=== PATIENT | female | born 1970 | race Two or more races ===

== ENCOUNTER → 2024-07-14 | Outpatient (CLI) | payer BC, SELFPAY ==
[2024-07-14 08:29] LABS: Misc Send Out* See Sep Rpt
[2024-07-14 08:58] LABS: Collection Type, Urine Clean Catch
[2024-07-14 09:14] LABS: Basophils # (Auto) 0.1 Thou/mm3 (0.0-0.2); Basophils % (Auto) 1 % (0-2.5); Eosinophils # (Auto) 0.1 Thou/mm3 (0.0-0.5); Eosinophils % (Auto) 1 % (0-10); Hematocrit 32.7 % (36.0-46.0); Hemoglobin 10.5 g/dL (12.0-16.0); Immature Granulocytes % (Auto) 1 % (0-0); Immature Granulocytes Auto 0.06 Thou/mm3 (0.00-0.00); Lymphocytes # (Auto) 2.4 Thou/mm3 (1.0-4.8); Lymphocytes % (Auto) 25 % (10-50); Mean Corpuscular HGB Conc 32.1 g/dl (31.0-37.0); Mean Corpuscular Hemoglobin 27.4 pg (25.0-35.0); Mean Corpuscular Volume 85 fL (80-100); Monocytes # (Auto) 0.6 Thou/mm3 (0.0-0.8); Monocytes % (Auto) 6 % (0-12); Neutrophils # (Auto) 6.2 Thou/mm3 (1.8-7.7); Neutrophils % (Auto) 66 % (37-80); Nucleated Red Blood Cell % 0 /100 WBC (0); Platelet Count 243 Thou/mm3 (140-440); RDW Standard Deviation 43.8 fL (36.4-46.3); Red Blood Count 3.83 Miln/mm3 (4.00-5.20); White Blood Count 9.4 Thou/mm3 (3.6-11.0)
[2024-07-14 09:42] LABS: Bacteria,Urine 4+; Bilirubin,Urine Negative (Negative); Blood,Urine Negative (Negative); Clarity,Urine Turbid (Clear/Hazy); Color,Urine Lt-Yellow (Lt Yel-Yel); Glucose, Urine Negative (Negative); Ketones,Urine Negative (Negative); Leukocyte Esterase,Urine Positive (Negative); Nitrite,Urine Negative (Negative); PH,Urine 5.5 (5.0-7.0); Protein,Urine Negative (Neg - Trace); RBC,Urine 3 /hpf (0-3); Specific Gravity,Urine 1.016 (1.001-1.035); Squamous Epithelial Cell,Urine 1 /hpf (0-5); Urobilinogen,Urine Negative mg/dL (0.0-1.0); WBC,Urine 26 /hpf (0-5)
[2024-07-14 09:44] LABS: Sed Rate (ESR) 80 mm/hr (0-30)
[2024-07-14 09:53] LABS: Creatinine MALB Rnd Ur 87 mg/dL (30-125); Microalbumin Creat Ratio 31 mg/gCrea (<30); Microalbumin, Random Urine 27 mg/L (0-300)
[2024-07-14 10:39] LABS: Vitamin B12 463 pg/mL (211-911)
[2024-07-14 10:58] LABS: Alanine Aminotransferase 10 U/L (10-49); Albumin, Serum 4.3 gm/dL (3.5-5.0); Albumin/Globulin Ratio 1.4 (1.2-2.2); Alkaline Phosphatase 99 U/L (46-116); Anion Gap 8 (7-16); Aspartate Amino Transferase 12 U/L (0-34); BUN/Creatinine Ratio 34 Ratio (12-20); Bilirubin,Total 0.4 mg/dL (0.3-1.2); Blood Urea Nitrogen 41 mg/dL (9-23); C-Reactive Protein 0.5 mg/dL (0.0-0.9); Calcium 9.7 mg/dL (8.3-10.6); Calcium (Corrected) 9.7 mg/dL (8.5-10.1); Carbon Dioxide 24.6 mMol/L (20.0-31.0); Cardiac Risk Estimate 2.9 RATIO (3.7-5.6); Chloride 105 mMol/L (98-107); Cholesterol 166 mg/dL (132-200); Creatinine (Component) 1.2 mg/dL (0.6-1.3); Globulin 3.1 gm/dL (2.3-3.5); Glucose 166 mg/dL (74-106); HDL Cholesterol 58 mg/dL (40-60); LDL Cholesterol,Calculated 93 mg/dL (0-130); Osmolality,Calculated 289 (275-295); Potassium 4.8 mMol/L (3.4-5.1); Sodium 138 mMol/L (136-145); Thyroid Stimulating Hormone 0.66 uIU/mL (0.55-4.78); Total Protein 7.4 gm/dL (5.7-8.2); Triglycerides 75 mg/dL (30-150); Uric Acid 6.6 mg/dL (3.1-7.8); eGFR 53 See Note
[2024-07-14 12:07] LABS: Glucose Estimated Average 169 mg/dL (80-131); Hemoglobin A1C 7.5 % Hgb (4.8-6.0)
[2024-07-18 13:40] LABS: ANA Pattern NUCLEAR, HOMOGENEOUS; ANA Screen, IFA POSITIVE (NEGATIVE); ANA Titer 1:40 titer; CCP Antibody (IgG)* <16 Units; DNA (ds) Antibody* 2 IU/mL; T3,Total* 97 ng/dL (76-181); Thyroid Peroxidase Antibodies* <1 IU/mL (<9)
== END | disposition home or self-care (01) ==
PROVIDERS: PCP Internal Medicine; Referring Provider Internal Medicine; Visit Provider Nurse Practitioner Family
DX: E11.65 Type 2 diabetes mellitus with hyperglycemia (principal); R53.83 Other fatigue; E55.9 Vitamin D deficiency, unspecified; I10 Essential (primary) hypertension; E78.5 Hyperlipidemia, unspecified; N17.9 Acute kidney failure, unspecified; D51.9 Vitamin B12 deficiency anemia, unspecified; M12.30 Palindromic rheumatism, unspecified site
CPT/HCPCS: 36415; 80053; 80061; 81001; 82043; 82306; 82570; 82607; 83036; 83519; 84439; 84443; 84480; 84550; 85025; 85652; 86038; 86039; 86140; 86200; 86225; 86376

== ENCOUNTER 2024-09-26 20:28 | Emergency (ER) | payer BC, SELFPAY ==
--- NOTE | 2024-09-26 20:50 | EKG_ITS ---
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
[2024-09-26 21:16] VITALS: BP 148/84; PULSE 75; RESP 18; TEMP 36.9; O2SAT 99; BMI 27.8
--- NOTE | 2024-09-26 21:24 | XR_ITS ---
Examination: PA chest single view Technique: Upright PA chest single view Exam date and time: September 18, 2024 at 10 0 2:00 PM Comparison 04/23/2024 Indications: Chest pain shortness of breath today. Findings: Normal heart size Transvenous dual-chamber bipolar cardiac leads satisfactory position as well as epicardial 8 No pneumonia or pulmonary edema The osseous structures are intact Impression: No active disease
--- NOTE | 2024-09-26 21:24 | PD.EDRME ---
Rapid Medical Screening Exam E Arrival date/time: 09/26/24 20:28 54F with history of CHF (w/ pacemaker), DM, and HTN presents to ED with 2 days of CP and SOB. Remote history of anxiety. 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 Chief Complaint: Chest Pain Vital signs: Vital Signs Temperature 98.4 F 09/26/24 21:16 Pulse Rate 75 09/26/24 21:16 Respiratory Rate 18 09/26/24 21:16 Blood Pressure 148/84 H 09/26/24 21:16 Pulse Oximetry (%) 99 09/26/24 21:16 Oxygen Delivery Method Room Air 09/26/24 21:16
[2024-09-26 21:50] LABS: Basophils # (Auto) 0.1 Thou/mm3 (0.0-0.2); Basophils % (Auto) 1 % (0-2.5); Eosinophils # (Auto) 0.1 Thou/mm3 (0.0-0.5); Eosinophils % (Auto) 1 % (0-10); Hematocrit 30.7 % (36.0-46.0); Hemoglobin 10.1 g/dL (12.0-16.0); Immature Granulocytes % (Auto) 0 % (0-0); Immature Granulocytes Auto 0.03 Thou/mm3 (0.00-0.00); Lymphocytes # (Auto) 3.7 Thou/mm3 (1.0-4.8); Lymphocytes % (Auto) 40 % (10-50); Mean Corpuscular HGB Conc 32.9 g/dl (31.0-37.0); Mean Corpuscular Volume 85 fL (80-100); Monocytes # (Auto) 0.6 Thou/mm3 (0.0-0.8); Monocytes % (Auto) 7 % (0-12); Neutrophils # (Auto) 4.8 Thou/mm3 (1.8-7.7); Neutrophils % (Auto) 52 % (37-80); Nucleated Red Blood Cell % 0 /100 WBC (0); Platelet Count 234 Thou/mm3 (140-440); RDW Standard Deviation 42.9 fL (36.4-46.3); Red Blood Count 3.61 Miln/mm3 (4.00-5.20); White Blood Count 9.2 Thou/mm3 (3.6-11.0)
[2024-09-26 21:59] LABS: B-Type Natriuretic Peptide < 20 pg/mL (0-100)
[2024-09-26 22:12] LABS: Alanine Aminotransferase < 7 U/L (10-49); Albumin, Serum 4.1 gm/dL (3.5-5.0); Albumin/Globulin Ratio 1.3 (1.2-2.2); Alkaline Phosphatase 86 U/L (46-116); Anion Gap 6 (7-16); Aspartate Amino Transferase 11 U/L (0-34); BUN/Creatinine Ratio 36 Ratio (12-20); Bilirubin,Total 0.3 mg/dL (0.3-1.2); Blood Urea Nitrogen 32 mg/dL (9-23); Calcium 9.7 mg/dL (8.3-10.6); Calcium (Corrected) 9.7 mg/dL (8.5-10.1); Carbon Dioxide 28.1 mMol/L (20.0-31.0); Chloride 110 mMol/L (98-107); Creatinine (Component) 0.9 mg/dL (0.6-1.3); Globulin 3.2 gm/dL (2.3-3.5); Glucose 131 mg/dL (74-106); Osmolality,Calculated 295 (275-295); Potassium 4.6 mMol/L (3.4-5.1); Sodium 144 mMol/L (136-145); Total Protein 7.3 gm/dL (5.7-8.2); Troponin I < 0.002 ng/mL (0.0-0.045); eGFR > 60 See Note
[2024-09-26 22:54] VITALS: BP 142/78; PULSE 76; RESP 18; TEMP 36.9; O2SAT 97
[2024-09-27 00:44] LABS: Troponin I < 0.002 ng/mL (0.0-0.045)
--- NOTE | 2024-09-27 01:44 | PD.EDCHEST ---
ED Chest Pain RME/HPI General Chief Complaint: Chest Pain Stated Complaint: CHEST PAIN Time Seen by Provider: 09/26/24 22:36 Arrival date/time: 09/26/24 20:28 54F with history of CHF (w/ pacemaker), DM, and HTN presents to ED with 2 days of CP and SOB. Remote history of anxiety. 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 Limitations: no limitations RME / HPI RME / HPI narrative: 09/26/24 20:28 54F with history of CHF (w/ pacemaker), DM, and HTN presents to ED with 2 days of CP and SOB. Remote history of anxiety. 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 Related Data Home Medications ?Medication ?Instructions ?Recorded ?Confirmed alprazolam 0.25 mg tablet 0.25 mg PO TID PRN Anxiety 09/27/22 08/15/23 Held on 08/15/23. Instructions: Resume on 08/16/23. atorvastatin 20 mg tablet 20 mg PO HS 09/27/22 08/15/23 carvedilol 25 mg tablet 25 mg PO BID 09/27/22 08/15/23 cyclobenzaprine 5 mg tablet 5 mg PO TID 09/27/22 08/15/23 Held on 08/15/23. Instructions: Resume on 08/16/23. glipizide 5 mg-metformin 500 mg 1 tab PO BID 09/27/22 08/15/23 tablet insulin glargine 100 unit/mL (3 See Protocol subcut ACHS 09/27/22 08/15/23 mL) subcutaneous pen (Lantus Solostar U-100 Insulin) sacubitril 49 mg-valsartan 51 mg 1 tab PO BID 09/27/22 08/15/23 tablet (Entresto) tirzepatide 5 mg/0.5 mL 5 mg subcut QWEEK 09/27/22 08/15/23 subcutaneous pen injector (Mounjaro) aspirin 81 mg tablet 81 mg PO QDAY 12/25/22 08/15/23 calcium 600 mg capsule 600 mg PO QDAY 08/15/23 08/15/23 pantoprazole 20 mg tablet,delayed 20 mg PO QDAY 08/15/23 08/15/23 release (Protonix) vortioxetine 10 mg tablet 10 mg PO QDAY 08/15/23 08/15/23 (Trintellix) zinc 50 mg capsule 50 mg PO QDAY 08/15/23 08/15/23 Previous Rx's ?Medication ?Instructions ?Recorded cephalexin 500 mg capsule 500 mg PO TID #15 caps 09/24/23 Allergies Allergy/AdvReac Type Severity Reaction Status Date / Time hydrocodone Allergy Severe VOMITING, Verified 09/26/24 20:32 RASH ondansetron Allergy Severe Seizure Verified 09/26/24 20:32 Review of Systems Review of Systems Systems Reviewed: All systems reviewed, normal except as documented Constitutional Constitutional: Reports system reviewed and no additional complaints, except as documented, Denies fever(s) and Denies headache(s) ENT Ears, Nose, Mouth, and Throat: Denies disequilibrium and Denies headache(s) Cardiovascular Cardiovascular: Reports system reviewed and no additional complaints, except as documented, Reports as per HPI, Reports chest pain and Reports dyspnea Respiratory Respiratory: Reports system reviewed and no additional complaints, except as documented, Denies cough and Reports dyspnea Gastrointestinal Gastrointestinal: Reports system reviewed and no additional complaints, except as documented, Denies abdominal pain, Denies nausea and Denies vomiting Neurologic Neurologic: Reports system reviewed and no additional complaints, except as documented, Denies confusion, Denies disequilibrium and Denies headache(s) Psychiatric Psychiatric: Denies confusion Past Medical History Past Medical History NEUROLOGIC: Positive Brain Tumor and Migraine; Negative Seizures or Mclaughlin's Palsy CARDIAC: Positive Cardiac Disorders, Hypercholesterolemia, Deep Vein Thrombosis and Hypertension; Negative Myocardial Infarction, Congestive Heart Failure or Edema RESPIRATORY: Positive Asthma, Bronchitis and Sleep Apnea; Negative Chronic Obstructive Pulmonary Disease (COPD), Emphysema or Pneumonia GASTROINTESTINAL: Positive Gastrointestinal Disorders and Gastroesophageal Reflux Disease; Negative Hepatitis, Cirrhosis, Ulcer, Crohn's Disease or Hiatal Hernia GENITOURINARY: Positive Kidney Stones; Negative Genitourinary Disorders or Renal Disease REPRODUCTIVE: Positive Previous Pregnancies; Negative Endometriosis, Pelvic Inflammatory Disease or Uterine Prolapse MUSCULOSKELETAL: Positive Musculoskeletal Disorders, Arthritis and Carpal Tunnel Syndrome; Negative Rheumatoid Arthritis, Fractures or Osteomyelitis ENDOCRINE: Positive Endocrine Disorders and Diabetes Mellitus Type 2; Negative Diabetes Mellitus Type 1, Hypoglycemia, Hyperthyroidism or Hypothyroidism HEMATOLOGIC: Positive Anemia; Negative Blood Disorders or Sickle Cell Disease PSYCHO/SOCIAL: Negative Depression or Anxiety OTHER HISTORY: Positive Anesthesia Reactions and Chicken Pox; Negative Autoimmune Disease, Blood Transfusions, Blood Transfusion Reaction, Organ Transplant, Chemotherapy, Radiation Therapy, MRSA, VRSA, Vancomycin-Resistant Enterococci, Measles, Mumps or Cancer Family History FAMILY HISTORY: Positive Family Cardiac Disorders; Negative Family Psychiatric Problems, Family Respiratory Disorders, Family Gastrointestinal Problems, Family Cancer, Family Surgery or Family Anesthesia Reaction Surgical History SURGICAL: Positive Pacemaker, Angiogram, Auto Implanted Cardiovert Defib, Abdominal Surgery, Neurologic Surgery, Hysterectomy and Tubal Ligation; Negative Endocrine Surgery, Thyroidectomy or Organ Transplant Social History SMOKING STATUS: Never smoker SUBSTANCE USE: does not use ED Exam General Limitations: Present no limitations General appearance: Present alert and in no apparent distress Head Head exam: Present atraumatic Eye Eye exam: Present normal appearance, PERRL and EOMI ENT ENT exam: Present normal exam, normal oropharynx and mucous membranes moist Neck Neck exam: Present normal inspection, full ROM and trachea midline Chest Chest inspection: Present normal inspection and symmetric chest wall rise Respiratory Respiratory exam: Present normal lung sounds bilaterally Cardiovascular Cardiovascular exam: Present regular rate, normal rhythm and normal heart sounds Abdominal Exam Abdominal exam: Present soft and normal bowel sounds Extremities Exam Extremities exam: Present normal inspection and full ROM Back Exam Back exam: Present normal inspection and full ROM Neurological Exam Neurological exam: Present alert, oriented X3 and CN II-XII intact Psychiatric Psychiatric exam: Present normal affect and normal mood Skin Skin exam: Present warm, dry, intact and normal color Course Quality Measures none Orders Category Date Time Status EKG (ED ONLY) *Do not use* NOW Care 09/26/24 20:50 Completed EKG (ED Only) Stat Exams 09/26/24 20:50 Draft XR chest 1V portable Stat Exams 09/26/24 21:24 Completed B-Type Natriuretic Peptide Stat Lab 09/26/24 21:35 Completed CBC Stat Lab 09/26/24 21:35 Completed Comprehensive Metabolic Panel Stat Lab 09/26/24 21:35 Completed Troponin I Stat Lab 09/26/24 21:35 Completed Troponin I Stat Lab 09/26/24 23:57 Completed Vital Signs Vital signs: Vital Signs Temperature 98.4 F 09/26/24 21:16 Pulse Rate 75 09/26/24 21:16 Respiratory Rate 18 09/26/24 21:16 Blood Pressure 148/84 H 09/26/24 21:16 Pulse Oximetry (%) 99 09/26/24 21:16 Oxygen Delivery Method Room Air 09/26/24 21:16 O2 at 99% on RA and WNLs Chest Pain MDM Narrative MDM Narrative:: 54F with history of CHF (w/ pacemaker), DM, and HTN presents to ED with 2 days of CP and SOB. Remote history of anxiety. 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 Physical exam reveals clear ENT and lungs. Normal WOB. No leg swelling. Patient is afebrile, calm, and alert. EKG is paced. No leukocytosis. CMP remarkable. BMP normal. CXR normal. Trop (2x) normal. Medical File Clerk given. Patient data External records reviewed:: [facility] previous records Clinical information provided by:: patient Social determinants that could affect healthcare access:: none Patient has the following chronic illnesses:: CHF (w/ pacemaker), DM, and HTN How is presenting disease/condition affected by chronic disease/condition?: exacerbated by Evaluation data The following diagnostics were reviewed and interpreted by me:: lab results, radiology exam(s) and EKG tracing(s) Lab and/or radiology exams considered but not ordered:: ordered Interpretation Summary: above Medications / Prescriptions Medications or Prescriptions considered but not ordered:: not ordered Medication administrations:: n/a Consultations Consultation(s) initiated? (list below): No Diagnosis Chest Pain Differential Diagnosis: fracture of rib, pneumothorax, stable angina, unstable angina pectoris, atypical chest pain, st elevation myocardial infarction, costochondritis, chest pain, biliary colic and other (PE, CAP) Most likely diagnosis given after review of the tests above:: atypical chest pain Admission Indicated Admission indicated?: not indicated Admission Request Was there a request for admission?: No Disposition Plan Disposition Plan: Discharge Discharge Attestation Discharge Attestation: The patient and all family members were given an opportunity to ask questions and understood the discharge instructions. Discharge instructions specifically effects, indications for sooner follow up or return to the emergency department, and the expected course of current diagnosis. Patient condition: Stable Discharge Plan Plan Patient Disposition: HOME (Self Care) Disposition Comment: Stable Prescriptions/Referrals Prescriptions/Med Rec: No Action insulin glargine [Lantus Solostar U-100 Insulin] 100 unit/mL (3 mL) insulin pen See Protocol SUBCUT ACHS Protocol: Insulin Corrective High-Dose Regimen Condition: Fingerstick Blood Glucose Dose/Route: Insulin Units Condition: 141-180 mg/dl Dose/Route: 6 units/SQ Condition: 181-220 mg/dl Dose/Route: 8 units/SQ Condition: 221-260 mg/dl Dose/Route: 10 units/SQ Condition: 261-300 mg/dl Dose/Route: 12 units/SQ Condition: 301-350 mg/dl Dose/Route: 14 units/SQ Condition: 351-400 mg/dl Dose/Route: 16 units/SQ Condition: greater than 400 mg/dl Dose/Route: 18 units/SQ atorvastatin 20 mg tablet 20 mg PO HS Patient Comments: TAKE 1 TABLET BY MOUTH EVERYDAY AT BEDTIME carvedilol 25 mg Tablet 25 mg PO BID Rx Instructions: must administer with a meal/food alprazolam 0.25 mg Tablet 0.25 mg PO TID PRN (Reason: Anxiety) glipizide-metformin 5-500 mg Tablet 1 tab PO BID cyclobenzaprine 5 mg Tablet 5 mg PO TID Entresto 49-51 mg Tablet 1 tab PO BID Mounjaro 5 mg/0.5 mL Pen Injector 5 mg SUBCUT QWEEK Rx Instructions: Fridays aspirin 81 mg Tablet 81 mg PO QDAY calcium 600 mg Capsule 600 mg PO QDAY pantoprazole [Protonix] 20 mg Tablet,Delayed Release (Dr/Ec) 20 mg PO QDAY zinc 50 mg Capsule 50 mg PO QDAY Trintellix 10 mg tablet 10 mg PO QDAY Patient Comments: TAKE 1 TABLET (10 MG) BY ORAL ROUTE ONCE DAILY AT THE SAME TIME EACH DAY cephalexin 500 mg capsule 500 mg PO TID Qty: 15 0RF Referrals: Jackie Huff MD [Primary Care Provider] - In 1 week Problem List Clinical Impression: Atypical chest pain Patient/Caregiver Discharge Instructions Education Materials: ED Chest Pain, Uncertain Cause Additional Instructions: Please follow-up with PCP/linseed oil press tender within 24-48 hours and return immediately if symptoms worsen. Print Language: Sami Stand Alone Forms: Patient Portal Info Letter PA/COMPUTER GRAPHIC ARTIST Supervising Physician PA/COMPUTER GRAPHIC ARTIST Supervising Physician: Dr. Alvarado
[2024-09-27 01:51] VITALS: BP 128/82; PULSE 75; RESP 16; TEMP 36.8; O2SAT 98
== END 2024-09-27 01:53 | disposition home or self-care (01) ==
PROVIDERS: Physician Assistant; Emergency Provider Emergency Medicine; PCP Internal Medicine
DX: R07.89 Other chest pain (principal); I11.0 Hypertensive heart disease with heart failure; I50.9 Heart failure, unspecified; E11.9 Type 2 diabetes mellitus without complications; Z95.0 Presence of cardiac pacemaker; Z88.5 Allergy status to narcotic agent
CPT/HCPCS: 36415; 71045; 80053; 83880; 84484; 85025; 93005; 99283

== ENCOUNTER 2024-10-14 09:36 | Day surgery (SDC) | payer BC, SELFPAY ==
--- NOTE | 2024-10-13 07:00 | EKG_ITS ---
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
[2024-10-13 12:35] LABS: Basophils # (Auto) 0.1 Thou/mm3 (0.0-0.2); Basophils % (Auto) 0 % (0-2.5); Eosinophils % (Auto) 0 % (0-10); Hematocrit 30.7 % (36.0-46.0); Hemoglobin 10.2 g/dL (12.0-16.0); Immature Granulocytes % (Auto) 2 % (0-0); Immature Granulocytes Auto 0.19 Thou/mm3 (0.00-0.00); Lymphocytes % (Auto) 17 % (10-50); Mean Corpuscular HGB Conc 33.2 g/dl (31.0-37.0); Mean Corpuscular Hemoglobin 27.8 pg (25.0-35.0); Mean Corpuscular Volume 84 fL (80-100); Monocytes % (Auto) 8 % (0-12); Neutrophils # (Auto) 8.6 Thou/mm3 (1.8-7.7); Neutrophils % (Auto) 73 % (37-80); Nucleated Red Blood Cell % 0 /100 WBC (0); Platelet Count 397 Thou/mm3 (140-440); RDW Standard Deviation 38.7 fL (36.4-46.3); Red Blood Count 3.67 Miln/mm3 (4.00-5.20); White Blood Count 11.8 Thou/mm3 (3.6-11.0)
[2024-10-13 12:43] LABS: INR 1.1 (0.9-1.3); Partial Thromboplastin Time 30.5 Seconds (22.0-36.0); Prothrombin Time 11.5 Seconds (9.0-12.2)
[2024-10-13 12:48] LABS: Anion Gap 9 (7-16); BUN/Creatinine Ratio 24 Ratio (12-20); Blood Urea Nitrogen 31 mg/dL (9-23); Calcium 10.1 mg/dL (8.3-10.6); Carbon Dioxide 26.5 mMol/L (20.0-31.0); Chloride 98 mMol/L (98-107); Creatinine (Component) 1.3 mg/dL (0.6-1.3); Glucose 179 mg/dL (74-106); Osmolality,Calculated 276 (275-295); Potassium 4.8 mMol/L (3.4-5.1); Sodium 133 mMol/L (136-145); eGFR 48 See Note
[2024-10-14] VITALS (13 sets, daily range): BP systolic 144–177; BP diastolic 61–96; PULSE 64–94; RESP 12–19; TEMP 36.7–36.8; O2SAT 97–100; BMI 28.6
[2024-10-14] MEDS: carVEDILOL 12.5 MG TABLET 25 MG PO (14:14)
[2024-10-14] MEDS: ACETAMINOPHEN 325 MG TABLET 650 MG PO (14:21)
--- NOTE | 2024-10-14 16:33 | PC.NURSE ---
1221: Pt received for recovery. Report from Triston VELÁSQUEZ. Pt groggy, but responsive. Resp even, unlabored. VS stable. TR band intact with no swelling, hematoma. Femoral dressing dry, clean, intact with no swelling, hematoma. 1250: Pt more awake, alert. Sitting up tolerating po fluids with no difficulty swallowing and no n/v. 1320: TR band air removal started. 1345: Pt needing to void. [place] suction catheter placed. 1414: BP elevated. Dr. Marquez notified. Received order for Carvidilol which was given at this time. 1420: TR band air removal complete. Tegaderm and coban applied to right wrist. 1421: Pt having c/o pain to right groin. Rates pain level 6/10. Tylenol given, 1451: Pt stated pain level down and she is much more comfortable. 1525: Pt dressed and in transport chair. Awaiting transportation. 1600: Transportation available. Pt and daughter stated understanding of discharge instructions. Pt discharged from Institutional Commodity Analyst in stable condition.
--- NOTE | 2024-10-15 10:01 | ESOP_ITS ---
RE: ROBYN FISCHER : 1970 DATE OF OPERATION: 10/14/2024 PROCEDURE PERFORMED: 1. Diagnostic right and left heart cardiac catheterization, selective coronary angiogram, left ventricular angiogram, CPT 29077. 2. Ultrasound-guided access, right radial artery. 3. Conscious sedation, 30-minute duration. 4. TR band application. DIAGNOSES: Cardiomyopathy, congestive heart failure, angina pectoris. HISTORY AND INDICATIONS: The patient is a 54-year-old female with a history of nonischemic cardiomyopathy, congestive heart failure, DEMOLITION EXPERT-D implantation, has been having recurrent and severe substernal chest tightness, chest pain, shortness of breath with minimal exertion, shortness of breath at rest at times. Because of these findings and known CAD, a nuclear scan was performed that was also abnormal. Hence, coronary angiogram was recommended to assess the patient is a candidate for intervention, revascularization. DESCRIPTION OF PROCEDURE: The patient was brought to cardiac catheterization laboratory. She was given 2 mg of Versed and 100 mcg of fentanyl for conscious sedation. Right femoral vein was cannulated with micropuncture technique. A 7-[place] sheath was introduced. Right radial artery was cannulated by ultrasound guidance technique and a 6-[place] Glidesheath was introduced. Diagnostic right heart catheterization was performed with [place] catheter. Right heart pressures were measured. Diagnostic left heart catheterization performed by TIG-4 diagnostic catheter. Selective right and left coronary angiogram was performed by Chandrakant catheters. Multiple views were obtained. The patient tolerated the procedure well. There were no complications. Cardiac catheterization showed following findings: HEMODYNAMICS: Right atrial pressure was found to be 0 to 2 mmHg. Right ventricle pressure is found to be 22/0. PA pressure is 17/5 mmHg. Pulmonary artery wedge pressure is 2 mmHg. Left ventricular pressure 132/5, EDP 8, aortic pressure 140/68. No gradient across the aortic valve. Left ventricular angiogram showed evidence of normal left ventricular wall motion, ejection fraction of 70%. FINDINGS: Coronary angiogram showed following findings. Right coronary artery is large and dominant giving a PDA. Posterolateral branches appear normal. Left coronary system. Left main coronary artery is normal. Left anterior descending artery is normal. Circumflex artery is normal. SUMMARY OF FINDINGS AND SUGGESTIONS: 1. Normal nonobstructive epicardial coronary arteries. 2. Normal left ventricular function, ejection fraction 70%. 3. Normal PA pressure and right heart pressure. RECOMMENDATIONS: The patient is reassured about the absence of significant obstructive coronary artery disease. No evidence of congestive heart failure. Her symptoms are probably noncardiac in nature. Prognosis is excellent. Continue medical management. DT: 08:42:40 TT: 09:59:00 Ref: [id number] - TID: [id number]
== END 2024-10-14 15:50 | disposition home or self-care (01) ==
PROVIDERS: PCP Internal Medicine; Referring Provider Internal Medicine Cardiovascular Disease; Visit Provider Internal Medicine Cardiovascular Disease
PROC: (CPT 93460; principal; 2024-10-14 11:30)
DX: I25.118 Atherosclerotic heart disease of native coronary artery with other forms of angina pectoris (principal); I42.8 Other cardiomyopathies; E11.9 Type 2 diabetes mellitus without complications; I11.0 Hypertensive heart disease with heart failure; I50.22 Chronic systolic (congestive) heart failure; Z95.810 Presence of automatic (implantable) cardiac defibrillator; Z01.810 Encounter for preprocedural cardiovascular examination
CPT/HCPCS: 93460; 36415; 80048; 85025; 85610; 85730; 93005; 99152; 99153; A4649; C1769; C1887; C1894; J0171; J0461; J1643; J2250; J2310; J2371; J3010; J3490; Q9967; A9270; J2305

== ENCOUNTER 2024-11-09 23:52 | Emergency (ER) | payer BC, SELFPAY ==
[2024-11-09 23:53] VITALS: BMI 28.3
[2024-11-10 00:08] VITALS: BP 98/63; PULSE 95; RESP 20; TEMP 36.8; O2SAT 98
--- NOTE | 2024-11-10 00:11 | XR_ITS ---
Examination: Ultrasound soft tissue right groin perineum Technique: Grayscale sonographic images soft tissue right groin pneumoperitoneum Exam date and time: November 10, 2024 0019 hrs. Indications: Painful lump with discharge and redness in the right leg noticed beginning 4 days ago. Findings: Soft tissue echogenic mass at the area concern with increased vascularity, 3.2 x 1.4 x 2.6 cm Impression: Soft tissue abscess at the area of concern 3.2 x 1.4 x 2.6 cm
--- NOTE | 2024-11-10 00:12 | PD.EDRME ---
Rapid Medical Screening Exam RME Arrival date/time: 11/09/24 23:52 54 year old female present to ED for c/o of inner thigh abscess.redness I have greeted and performed a focused initial assessment of this patient. A comprehensive ED assessment and evaluation of the patient, analysis of all test results, and completion of the medical decision making process will be conducted by additional ED providers. Chief Complaint: Skin/Abscess/Foreign Body Time Seen by Provider: 11/09/24 23:56 Vital signs: Vital Signs Temperature 98.3 F 11/10/24 00:08 Pulse Rate 95 11/10/24 00:08 Respiratory Rate 20 11/10/24 00:08 Blood Pressure 98/63 11/10/24 00:08 Pulse Oximetry (%) 98 11/10/24 00:08 Oxygen Delivery Method Room Air 11/10/24 00:08
[2024-11-10 00:50] LABS: Lactate (Lactic Acid) 1.5 mMol/L (0.4-2.0)
[2024-11-10 00:51] LABS: Basophils % (Auto) 0 % (0-2.5); Eosinophils # (Auto) 0.2 Thou/mm3 (0.0-0.5); Eosinophils % (Auto) 1 % (0-10); Hematocrit 31.1 % (36.0-46.0); Hemoglobin 10.1 g/dL (12.0-16.0); Immature Granulocytes % (Auto) 1 % (0-0); Immature Granulocytes Auto 0.12 Thou/mm3 (0.00-0.00); Lymphocytes # (Auto) 3.9 Thou/mm3 (1.0-4.8); Lymphocytes % (Auto) 27 % (10-50); Mean Corpuscular HGB Conc 32.5 g/dl (31.0-37.0); Mean Corpuscular Hemoglobin 28.6 pg (25.0-35.0); Mean Corpuscular Volume 88 fL (80-100); Monocytes # (Auto) 1.1 Thou/mm3 (0.0-0.8); Monocytes % (Auto) 7 % (0-12); Neutrophils # (Auto) 9.5 Thou/mm3 (1.8-7.7); Neutrophils % (Auto) 64 % (37-80); Nucleated Red Blood Cell % 0 /100 WBC (0); Platelet Count 258 Thou/mm3 (140-440); RDW Standard Deviation 41.4 fL (36.4-46.3); Red Blood Count 3.53 Miln/mm3 (4.00-5.20); White Blood Count 14.8 Thou/mm3 (3.6-11.0)
[2024-11-10 01:44] LABS: Albumin, Serum 4.2 gm/dL (3.5-5.0); Albumin/Globulin Ratio 1.2 (1.2-2.2); Alkaline Phosphatase 91 U/L (46-116); Anion Gap 10 (7-16); Aspartate Amino Transferase 11 U/L (0-34); BUN/Creatinine Ratio 24 Ratio (12-20); Bilirubin,Total 0.4 mg/dL (0.3-1.2); Blood Urea Nitrogen 29 mg/dL (9-23); Calcium 10.4 mg/dL (8.3-10.6); Calcium (Corrected) 10.4 mg/dL (8.5-10.1); Carbon Dioxide 27.4 mMol/L (20.0-31.0); Chloride 103 mMol/L (98-107); Creatinine (Component) 1.2 mg/dL (0.6-1.3); Estimated Creatinine Clearance 46.2 mL/min (>60); Globulin 3.6 gm/dL (2.3-3.5); Glucose 180 mg/dL (74-106); Osmolality,Calculated 290 (275-295); Potassium 4.3 mMol/L (3.4-5.1); Sodium 140 mMol/L (136-145); Total Protein 7.8 gm/dL (5.7-8.2); eGFR 53 See Note
[2024-11-10 01:50] LABS: Alanine Aminotransferase < 7 U/L (10-49); Procalcitonin 0.12 ng/ml (0.0-0.49)
--- NOTE | 2024-11-10 02:09 | PRELIM_ITS ---
Soft tissue ultrasound of the right groin/external genitalia with Doppler. November 10, 2024 at 0019 hours Clinical history: Abscess inner thigh. Comparison: None available at the time of this report. Findings: Abscess at the level of the right vaginal labia measuring 3.2 x 1.4 x 2.4 cm demonstrating increased peripheral vascularity. Impression: Right vaginal labial abscess. Discussion Details: Results verbally communicated to Jesse Anderson RN at 05:06 AM ET 10/11/2024. A call back number was provided to facilitate a [id number] communication. Report Electronically Signed By: Vahid Dobbs 11/10/2024 2:09:33 AM [EST]
--- NOTE | 2024-11-10 04:13 | PD.EDSKIN ---
ED Skin Abcess FB-RME/HPI General Chief complaint: Skin/Abscess/Foreign Body Stated complaint: abscess to R groing area Time Seen by Provider: 11/09/24 23:56 Arrival date/time: 11/09/24 23:52 Limitations: no limitations RME / HPI RME / HPI narrative: 11/09/24 23:52 54 year old female present to ED for c/o of inner thigh abscess.redness I have greeted and performed a focused initial assessment of this patient. A comprehensive ED assessment and evaluation of the patient, analysis of all test results, and completion of the medical decision making process will be conducted by additional ED providers. DR. FINNEY MAIN ED EVALUATION: 54 year old female presents to the Emergency Department with complaint of right thigh abscess. States she had a right thigh pimple for 5 days and that is it getting bigger. She did not seek medical attention until now because she had a , but she has been applying hot compresses. However, patient states the abscess is growing with increased pain. No fevers or chills. No other symptoms reported at this time. PMHx: Hypertension, diabetes type 2, nonischemic cardiomyopathy, congestive heart failure, and PERSONNEL ASSISTANT-D implantation. Social Hx: No tobacco, alcohol, or substance use. Dr. Marquez is her wrap turner. Related Data Home Medications ?Medication ?Instructions ?Recorded ?Confirmed alprazolam 0.25 mg tablet 0.25 mg PO TID PRN Anxiety 09/27/22 10/14/24 atorvastatin 20 mg tablet 20 mg PO HS 09/27/22 10/14/24 carvedilol 25 mg tablet 25 mg PO BID 09/27/22 10/14/24 cyclobenzaprine 5 mg tablet 5 mg PO TID 09/27/22 10/14/24 calcium 600 mg capsule 600 mg PO QDAY 08/15/23 10/14/24 zinc 50 mg capsule 50 mg PO QDAY 08/15/23 10/14/24 cetirizine 5 mg-pseudoephedrine ER 1 tab PO Q12H 10/14/24 10/14/24 120 mg tablet,extended release,12hr (All Day Allergy-D) dextromethorphan-guaifenesin 30 1 tab PO Q12H 10/14/24 10/14/24 mg-600 mg tablet extended [id number] hr duloxetine 60 mg capsule,delayed mg PO 10/14/24 release gabapentin 300 mg capsule mg 10/14/24 metformin 500 mg tablet,extended mg PO 10/14/24 release 24 hr Held on 10/14/24. Instructions: Resume on 10/16/24. Hold x48 hrs then may resume. sacubitril 24 mg-valsartan 26 mg 1 tab PO BID 10/14/24 10/14/24 tablet (Entresto) tirzepatide 7.5 mg/0.5 mL 7.5 mg subcut QWEEK 10/14/24 10/14/24 subcutaneous pen injector (Brianunashleyro) Previous Rx's ?Medication ?Instructions ?Recorded clindamycin HCl 300 mg capsule 300 mg PO Q6H #40 caps 11/10/24 Allergies Allergy/AdvReac Type Severity Reaction Status Date / Time hydrocodone Allergy Severe VOMITING, Verified 11/10/24 04:48 RASH ondansetron Allergy Severe Seizure Verified 11/10/24 04:48 lidocaine Allergy Verified 11/10/24 04:48 Review of Systems Review of Systems Systems Reviewed: All systems reviewed, normal except as documented Past Medical History Past Medical History NEUROLOGIC: Positive Transient Ischemic Attacks (TIA), Brain Tumor, Seizures and Migraine; Negative Mclaughlin's Palsy CARDIAC: Positive Cardiac Disorders, Hypercholesterolemia, Congestive Heart Failure, Congenital Heart Disease, Deep Vein Thrombosis and Hypertension; Negative Myocardial Infarction or Edema RESPIRATORY: Positive Asthma, Bronchitis and Sleep Apnea; Negative Chronic Obstructive Pulmonary Disease (COPD), Emphysema or Pneumonia GASTROINTESTINAL: Positive Gastrointestinal Disorders (esphagus expansionx2), Diverticulosis (remval middle section of colon), Hiatal Hernia and Gastroesophageal Reflux Disease; Negative Hepatitis, Cirrhosis, Gastrointestinal Bleed, Ulcer or Crohn's Disease GENITOURINARY: Positive Kidney Stones; Negative Genitourinary Disorders or Renal Disease REPRODUCTIVE: Positive Previous Pregnancies; Negative Endometriosis, Pelvic Inflammatory Disease or Uterine Prolapse MUSCULOSKELETAL: Positive Musculoskeletal Disorders, Arthritis, Carpal Tunnel Syndrome, Fibromyalgia and Fractures (foot left-); Negative Rheumatoid Arthritis or Osteomyelitis ENDOCRINE: Positive Endocrine Disorders and Diabetes Mellitus Type 2; Negative Diabetes Mellitus Type 1, Hypoglycemia, Hyperthyroidism or Hypothyroidism HEMATOLOGIC: Positive Anemia; Negative Blood Disorders or Sickle Cell Disease PSYCHO/SOCIAL: Negative Depression or Anxiety OTHER HISTORY: Positive Falls, Anesthesia Reactions and Chicken Pox; Negative Autoimmune Disease, Blood Transfusions, Blood Transfusion Reaction, Organ Transplant, Chemotherapy, Radiation Therapy, MRSA, VRSA, Vancomycin-Resistant Enterococci, Measles, Mumps or Cancer Family History FAMILY HISTORY: Positive Family Cardiac Disorders; Negative Family Psychiatric Problems, Family Respiratory Disorders, Family Gastrointestinal Problems, Family Cancer, Family Surgery or Family Anesthesia Reaction Surgical History SURGICAL: Positive Pacemaker, Angiogram, Auto Implanted Cardiovert Defib, Abdominal Surgery, Neurologic Surgery, Hysterectomy and Tubal Ligation; Negative Endocrine Surgery, Thyroidectomy, Ear Surgery or Organ Transplant Social History SMOKING STATUS: Never smoker SUBSTANCE USE: does not use ED Exam General Limitations: Present no limitations General appearance: Present alert and in no apparent distress Head Head exam: Present atraumatic, normocephalic and normal inspection Eye Eye exam: Present normal appearance, PERRL and EOMI ENT ENT exam: Present normal exam, normal oropharynx and mucous membranes moist Neck Neck exam: Present normal inspection, full ROM and trachea midline Chest Chest inspection: Present normal inspection and symmetric chest wall rise Respiratory Respiratory exam: Present normal lung sounds bilaterally Cardiovascular Cardiovascular exam: Present regular rate, normal rhythm and normal heart sounds Abdominal Exam Abdominal exam: Present soft and normal bowel sounds Extremities Exam Extremities exam: Present normal inspection and full ROM Back Exam Back exam: Present normal inspection and full ROM Neurological Exam Neurological exam: Present alert, oriented X3 and CN II-XII intact Psychiatric Psychiatric exam: Present normal affect and normal mood Skin Skin exam: Present warm, dry, intact, normal color and other (4 cm raised area, like the abscess is about to burst out, fluctuant, with erythema to the right thigh area; warmness to the touch in this area. No labia involvement.) Course Quality Measures none Orders Category Date Time Status US soft tissue lower back abd Stat Exams 11/10/24 00:11 Taken Blood Culture (Lab) Stat Lab 11/10/24 00:30 Received CBC Stat Lab 11/10/24 00:30 Completed CMP [Comprehensive Metabolic Panel] Stat Lab 11/10/24 00:30 Completed Lactic Acid [Lactate (Lactic Acid)] Stat Lab 11/10/24 00:30 Completed Procalcitonin Stat Lab 11/10/24 00:30 Completed Wound Culture and Gram Stain Stat Lab 11/10/24 05:01 Received Clindamycin/Ns 600 mg Ivpb [Cleocin/Ns Ivpb] Med 11/10/24 04:22 Discontinued 600 mg in 50 ml IV Q8HR DiphenhydrAMINE INJ [Benadryl Inj] Med 11/10/24 04:43 Discontinued 25 mg IV X1 ONE DiphenhydrAMINE INJ [Benadryl Inj] Med 11/10/24 04:43 Discontinued 50 mg .ROUTE .STK-MED ONE DiphenhydrAMINE INJ [Benadryl Inj] Med 11/10/24 04:43 Discontinued 50 mg IV X1 ONE Lidocaine 1% 20 ml [Xylocaine 1% 20 ML] Med 11/10/24 04:20 Discontinued 20 ml IM X1 ONE Sodium Chloride 0.9% 1000 ml [Ns] 1,000 ml Med 11/10/24 05:00 Discontinued IV 999 mls/hr fentaNYL INJ [Sublimaze Inj] Med 11/10/24 04:21 Discontinued 100 mcg IVP X1 ONE Vital Signs Vital signs: Vital Signs Temperature 98.3 F 11/10/24 00:08 Pulse Rate 95 11/10/24 00:08 Respiratory Rate 20 11/10/24 00:08 Blood Pressure 98/63 11/10/24 00:08 Pulse Oximetry (%) 98 11/10/24 00:08 Oxygen Delivery Method Room Air 11/10/24 00:08 Procedures -ED Abscess I/D Site: lower extremity (right thigh) Side (if applicable): right Local Anesthetic: lidocaine 1% Amount of anesthesia used (mL): 10 Technique: incised with #11 blade Amount of fluid expressed (mL): 25 Irrigation: Yes Packing used?: plain Complications: other (no complications, patient tolerated procedure well) Skin / Abscess / Foreign Body Patient data External records reviewed:: [facility] previous records (Patient admitted September 2024 for chest pain and had normal cardiac cath.) Clinical information provided by:: patient Social determinants that could affect healthcare access:: none Patient has the following chronic illnesses:: Hypertension, diabetes type 2, nonischemic cardiomyopathy, congestive heart failure, and PERSONNEL ASSISTANT-D implantation; Dr. Marquez is her wrap turner. How is presenting disease/condition affected by chronic disease/condition?: uneffected by Evaluation data The following diagnostics were reviewed and interpreted by me:: lab results and radiology exam(s) Lab and/or radiology exams considered but not ordered:: None Interpretation Summary: Labs: White count is 14 and abnormal. Hemoglobin is 10/31 chronic anemia. Creatinine is normal at 1.1. Procalcitonin is 0.12. This is normal. Ultrasound: Procedure(s): US soft tissue lower back abd Accession Number(s): [id number] cc: Catracho Henry MD; Mehrdad Alonso PA-C; Jackie Huff MD~ Examination: Ultrasound soft tissue right groin perineum Technique: Grayscale sonographic images soft tissue right groin pneumoperitoneum Exam date and time: November 10, 2024 0019 hrs. Indications: Painful lump with discharge and redness in the right leg noticed beginning 4 days ago. Findings: Soft tissue echogenic mass at the area concern with increased vascularity, 3.2 x 1.4 x 2.6 cm Impression: Soft tissue abscess at the area of concern 3.2 x 1.4 x 2.6 cm Dictated By: Catracho Henry MD Medications / Prescriptions Medications or Prescriptions considered but not ordered:: None Medication administrations:: Medication Administration History Discontinued Medications Diphenhydramine HCl (Diphenhydramine Inj 50 Mg/Ml Vial) 50 mg IV X1 ONE Stop: 11/10/24 04:44 Last Admin: 11/10/24 04:45 Dose: Not Given Documented By: AC Non-Admin Reason: Cancelled by Provider Diphenhydramine HCl (Diphenhydramine Inj 50 Mg/Ml Vial) 25 mg IV X1 ONE Stop: 11/10/24 04:44 Last Admin: 11/10/24 04:47 Dose: 25 mg Documented By: AC Diphenhydramine HCl (Diphenhydramine Inj 50 Mg/Ml Vial) Confirm Administered Dose 50 mg .ROUTE .STK-MED ONE Stop: 11/10/24 04:44 Last Admin: 11/10/24 04:59 Dose: Not Given Documented By: EF Non-Admin Reason: Override Medication Fentanyl Citrate (Fentanyl Cit Inj 50 Mcg/Ml Amp 2ml) 100 mcg IVP X1 ONE Stop: 11/10/24 04:22 Last Admin: 11/10/24 04:26 Dose: 100 mcg Documented By: EF Clindamycin/Sodium Chloride (Cleocin/Ns Ivpb) 600 mg in 50 mls @ 100 mls/hr IV Q8HR LASHAWN Stop: 11/17/24 04:21 Last Infusion: 11/10/24 05:40 Dose: Infused Documented By: Admin: 11/10/24 04:58 Dose: 100 mls/hr Documented By: EF Sodium Chloride (Ns) 1,000 mls @ 999 mls/hr IV .Q1H1M ONE Stop: 11/10/24 06:00 Last Infusion: 11/10/24 05:40 Dose: Infused Documented By: Admin: 11/10/24 05:09 Dose: 999 mls/hr Documented By: EF Lidocaine HCl (Lidocaine Hcl 1% 20 Ml Vial) 20 ml IM X1 ONE Stop: 11/10/24 04:21 Last Admin: 11/10/24 04:47 Dose: 20 ml Documented By: AC Antibiotics, pain control. Consultations Consultation(s) initiated? (list below): No Consultation #1 (Physician, Specialty, Details): None Diagnosis Skin/Abscess Differential Diagnosis: abscess of skin or subcutaneous tissue, herpes zoster and cellulitis Most likely diagnosis given after review of the tests above:: Abscess. Admission Indicated Admission indicated?: not indicated Explain why admission is indicated or not indicated:: Patient tolerating p.o. Not febrile. Not septic. Admission Request Was there a request for admission?: No Disposition Plan Disposition Plan: Discharge Discharge Attestation Discharge Attestation: The patient and all family members were given an opportunity to ask questions and understood the discharge instructions. Discharge instructions specifically effects, indications for sooner follow up or return to the emergency department, and the expected course of current diagnosis. Patient condition: Stable Discharge Plan Plan Patient Disposition: HOME (Self Care) Patient condition on transfer: Stable Prescriptions/Referrals Prescriptions/Med Rec: New clindamycin HCl 300 mg capsule 300 mg PO Q6H Qty: 40 0RF No Action atorvastatin 20 mg tablet 20 mg PO HS Patient Comments: TAKE 1 TABLET BY MOUTH EVERYDAY AT BEDTIME carvedilol 25 mg Tablet 25 mg PO BID Rx Instructions: must administer with a meal/food alprazolam 0.25 mg Tablet 0.25 mg PO TID PRN (Reason: Anxiety) cyclobenzaprine 5 mg Tablet 5 mg PO TID calcium 600 mg Capsule 600 mg PO QDAY zinc 50 mg Capsule 50 mg PO QDAY gabapentin 300 mg capsule Patient Comments: TAKE 1 CAPSULE BY MOUTH EVERY DAY FOR 30 DAYS metformin 500 mg tablet extended release 24 hr PO Patient Comments: TAKE 2 TABLETS BY MOUTH TWICE A DAY Entresto 24-26 mg tablet 1 tab PO BID duloxetine 60 mg capsule,delayed release(DR/EC) PO Patient Comments: TAKE 1 CAPSULE BY MOUTH EVERY DAY DIRECTED dextromethorphan-guaifenesin 30-600 mg tablet extended release 12 hr 1 tab PO Q12H cetirizine-pseudoephedrine [All Day Allergy-D] 5-120 mg tablet extended release 12 hr 1 tab PO Q12H Mounjaro 7.5 mg/0.5 mL pen injector 7.5 mg subcut QWEEK Referrals: Jackie Huff MD [Primary Care Provider] - In 1 week Problem List Clinical Impression: Abscess Patient/Caregiver Discharge Instructions Education Materials: ED Abscess, Incision And Drainage Additional Instructions: DISCHARGE INSTRUCTIONS Return for reevaluation in the next 48 hours, Sunday at 8 AM for a recheck and for repacking. Take Tylenol 650 mg 3 times a day for the next 48 hours. If you have a fever with Tylenol on board then you need to return here to the emergency department. Please continue the antibiotics as prescribed. Even though you have been discharged from the Emergency Department, there are several things that you should do to ensure that you receive proper care: 1. DO READ your discharge instructions as these contain important information concerning your medical care. 2. If medication has been prescribed for your condition, fill the prescription as soon as possible and follow the directions on the medication. 3. RETURN AT ONCE TO THE EMERGENCY DEPARTMENT if you have any problems or concerns. These include but are not limited to fever, worsening pain(belly, chest, head, etc?), worsening shortness of breath, uncontrollable bleeding, inability to tolerate food and water, or any condition that makes you question your well-being. Also, if your symptoms do not improve in the next 12-24 hours, return to the ER or seek medical care immediately. 4. Be sure to follow up with your regular physician or specialist as instructed at discharge as this is the best way to ensure that you receive the very best of care. If you do not have a primary care physician, please contact a physician group and make an appointment. 5. Please visit [employer] for coupons regarding your prescriptions. It is a free service for you to use and can help reduce the cost of your medication. We would like to thank you for coming today and our hope is that we served you and your family well during your stay Print Language: Romanian Stand Alone Forms: [employer] Award Info., Work/School Release, Patient Portal Info Letter
[2024-11-10] MEDS: fentaNYL CIT INJ 50 mCg/ML AMP 2ML 100 MCG IVP (04:26)
[2024-11-10] MEDS: LIDOCAINE HCL 1% 20 ML VIAL IM (04:47)
[2024-11-10] MEDS: DiphenhydrAMINE INJ 50 MG/ML VIAL 25 MG IV (04:47)
[2024-11-10] MEDS: CLINDAMYCIN/NS 600 MG IVPB 600 MG/50 ML BAG 100 MG IV (04:58)
[2024-11-10] MEDS: SODIUM CHLORIDE 0.9% 1000 ML 1,000 ML 999 ML IV (05:09)
[2024-11-10 05:42] VITALS: BP 116/76; PULSE 70; RESP 16; TEMP 37; O2SAT 98
== END 2024-11-10 05:43 | disposition home or self-care (01) ==
PROVIDERS: Physician Assistant; Emergency Provider Emergency Medicine; PCP Internal Medicine
DX: L02.415 Cutaneous abscess of right lower limb (principal); E11.9 Type 2 diabetes mellitus without complications; I11.0 Hypertensive heart disease with heart failure; I50.9 Heart failure, unspecified; Z86.73 Personal history of transient ischemic attack (TIA), and cerebral infarction without residual deficits; I42.8 Other cardiomyopathies; Z95.810 Presence of automatic (implantable) cardiac defibrillator; Z88.5 Allergy status to narcotic agent
CPT/HCPCS: 10060; 36415; 76705; 80053; 83605; 84145; 85025; 87040; 87070; 87077; 87186; 87205; 96361; 96365; 96375; 99284; J1200; J3010; J3490; J7030; S0077; J0737

== ENCOUNTER 2024-11-10 19:06 | Emergency (ER) | payer BC, SELFPAY ==
[2024-11-10 19:06] VITALS: BMI 28.3
[2024-11-10 19:15] VITALS: BP 139/89; PULSE 86; RESP 20; TEMP 37.1; O2SAT 95
--- NOTE | 2024-11-10 19:25 | PD.EDSKIN ---
ED Skin Abcess FB-RME/HPI General Chief complaint: Skin/Abscess/Foreign Body Stated complaint: ABSCESS ON VAG AREA Time Seen by Provider: 11/10/24 19:14 Arrival date/time: 11/10/24 19:06 54 year old female present to emergency room with c/o of packing/wound check. Patient was seen yesterday and gotten incision and drainage. pt report the packing is coming out. LOCATION: groin/vag area SEVERITY: Symptoms are described as being severe with limitations on activities of daily living QUALITY: Symptoms are described as being dull or achy CONTEXT: The patient is unable to identify any inciting events. DURATION/TIMING: The symptoms started approximately one day ago ASSOCIATED SYMPTOMS: The patient is unable to identify any other associated symptoms. MODIFYING FACTORS: The patient is unable to identify any alleviating or aggravating symptoms. PERTINENT ROS: denies IVDU, states no immunocompromising condition denies any penetrating trauma, no fever, no unexplained nausea or vomiting, no headache, no chest pain REVIEW OF SYSTEMS: See History of Present Illness - with the exception of those mentioned in the history of present illness, all other systems reviewed and reported as negative GENERAL: In general the patient is awake, interactive, in an emergency department gurney. HEAD/EYES/EARS/NOSE/THROAT: normo-cephalic, atraumatic, mucus membranes are moist, anicteric, palpebral conjunctiva is pink, trachea is midline. CARDIOVASCULAR: regular rate and regular rhythm, no murmurs, heart sounds are not distant, strong pulses in all four extremities that are equal and symmetric bilateral upper and lower BACK: normal range of motion without pain. : + packing intact, no discharge, no sign of necrotizing fasciitis, NEUROLOGICAL: cranio-facial features are symmetric, moves all four extremities equally without obvious limitations or weakness. SKIN: warm, dry, well-perfused, no jaundice, no rash, no telangiectasias or petechia. PSYCH: calm, cooperative, no evidence of psychosis or agitation Related Data Home Medications ?Medication ?Instructions ?Recorded ?Confirmed alprazolam 0.25 mg tablet 0.25 mg PO TID PRN Anxiety 09/27/22 10/14/24 atorvastatin 20 mg tablet 20 mg PO HS 09/27/22 10/14/24 carvedilol 25 mg tablet 25 mg PO BID 09/27/22 10/14/24 cyclobenzaprine 5 mg tablet 5 mg PO TID 09/27/22 10/14/24 calcium 600 mg capsule 600 mg PO QDAY 08/15/23 10/14/24 zinc 50 mg capsule 50 mg PO QDAY 08/15/23 10/14/24 cetirizine 5 mg-pseudoephedrine ER 1 tab PO Q12H 10/14/24 10/14/24 120 mg tablet,extended release,12hr (All Day Allergy-D) dextromethorphan-guaifenesin 30 1 tab PO Q12H 10/14/24 10/14/24 mg-600 mg tablet extended [id number] hr duloxetine 60 mg capsule,delayed mg PO 10/14/24 release gabapentin 300 mg capsule mg 10/14/24 metformin 500 mg tablet,extended mg PO 10/14/24 release 24 hr Held on 10/14/24. Instructions: Resume on 10/16/24. Hold x48 hrs then may resume. sacubitril 24 mg-valsartan 26 mg 1 tab PO BID 10/14/24 10/14/24 tablet (Entresto) tirzepatide 7.5 mg/0.5 mL 7.5 mg subcut QWEEK 10/14/24 10/14/24 subcutaneous pen injector (Inna) Previous Rx's ?Medication ?Instructions ?Recorded clindamycin HCl 300 mg capsule 300 mg PO Q6H #40 caps 11/10/24 oxycodone-acetaminophen 5 mg-325 1 tab PO Q8H PRN pain #14 tabs 11/10/24 mg tablet (Percocet) Allergies Allergy/AdvReac Type Severity Reaction Status Date / Time hydrocodone Allergy Severe VOMITING, Verified 11/10/24 04:48 RASH ondansetron Allergy Severe Seizure Verified 11/10/24 04:48 lidocaine Allergy Verified 11/10/24 04:48 Course Course Course Narrative: examination with SLOT SHIFT MANAGER at bedside. packing intact no sign of nec fas no discharge/odor/red streaking no indication for packing removal. advised to come back tomorrow for recheck/removal rx: percocet #14 Quality Measures none Orders Category Date Time Status oxyCODONE/APAP 5/325 [Percocet 5/325] Med 11/10/24 19:21 Discontinued 1 tab PO X1 ONE Vital Signs Vital signs: Vital Signs Temperature 98.7 F 11/10/24 19:15 Pulse Rate 86 11/10/24 19:15 Respiratory Rate 20 11/10/24 19:15 Blood Pressure 139/89 H 11/10/24 19:15 Pulse Oximetry (%) 95 11/10/24 19:15 Oxygen Delivery Method Room Air 11/10/24 19:15 Skin / Abscess / Foreign Body Patient data External records reviewed:: [facility] previous records Clinical information provided by:: patient Social determinants that could affect healthcare access:: none Patient has the following chronic illnesses:: as stated above How is presenting disease/condition affected by chronic disease/condition?: uneffected by Evaluation data The following diagnostics were reviewed and interpreted by me:: other (specify) (n/a ) Lab and/or radiology exams considered but not ordered:: n/a Interpretation Summary: n/a Medications / Prescriptions Medications or Prescriptions considered but not ordered:: n/a Medication administrations:: Medication Administration History Discontinued Medications Oxycodone/Acetaminophen (Oxycodone/Apap 5/325 Tablet) 1 tab PO X1 ONE Stop: 11/10/24 19:22 as stated Consultations Consultation(s) initiated? (list below): No Diagnosis Skin/Abscess Differential Diagnosis: abscess of skin or subcutaneous tissue and other (wound check ) Most likely diagnosis given after review of the tests above:: wound check Admission Indicated Admission indicated?: not indicated Admission Request Was there a request for admission?: No Disposition Plan Disposition Plan: Discharge Discharge Attestation Discharge Attestation: The patient and all family members were given an opportunity to ask questions and understood the discharge instructions. Discharge instructions specifically effects, indications for sooner follow up or return to the emergency department, and the expected course of current diagnosis. Patient condition: Stable Discharge Plan Plan Patient Disposition: HOME (Self Care) Health Concerns: Return in 1 day for packing removal Return to ED if symptoms worsen Prescriptions/Referrals Prescriptions/Med Rec: New oxycodone-acetaminophen [Percocet] 5-325 mg tablet 1 tab PO Q8H MDD 3 PRN (Reason: pain) Qty: 14 0RF No Action atorvastatin 20 mg tablet 20 mg PO HS Patient Comments: TAKE 1 TABLET BY MOUTH EVERYDAY AT BEDTIME carvedilol 25 mg Tablet 25 mg PO BID Rx Instructions: must administer with a meal/food alprazolam 0.25 mg Tablet 0.25 mg PO TID PRN (Reason: Anxiety) cyclobenzaprine 5 mg Tablet 5 mg PO TID calcium 600 mg Capsule 600 mg PO QDAY zinc 50 mg Capsule 50 mg PO QDAY gabapentin 300 mg capsule Patient Comments: TAKE 1 CAPSULE BY MOUTH EVERY DAY FOR 30 DAYS metformin 500 mg tablet extended release 24 hr PO Patient Comments: TAKE 2 TABLETS BY MOUTH TWICE A DAY Entresto 24-26 mg tablet 1 tab PO BID duloxetine 60 mg capsule,delayed release(DR/EC) PO Patient Comments: TAKE 1 CAPSULE BY MOUTH EVERY DAY DIRECTED dextromethorphan-guaifenesin 30-600 mg tablet extended release 12 hr 1 tab PO Q12H cetirizine-pseudoephedrine [All Day Allergy-D] 5-120 mg tablet extended release 12 hr 1 tab PO Q12H Mounjaro 7.5 mg/0.5 mL pen injector 7.5 mg subcut QWEEK clindamycin HCl 300 mg capsule 300 mg PO Q6H Qty: 40 0RF Referrals: Temporary Provider,ED [Primary Care Provider] - In 1 week Problem List Clinical Impression: Wound check, abscess Patient/Caregiver Discharge Instructions Education Materials: ED Wound Care Print Language: Honduran Stand Alone Forms: [employer] Award Info., Patient Portal Info Letter
[2024-11-10] MEDS: oxyCODONE/APAP 5/325 TABLET 1 TAB PO (19:32)
== END 2024-11-10 19:35 | disposition home or self-care (01) ==
PROVIDERS: Emergency Provider Emergency Medicine; PCP Internal Medicine
DX: Z48.01 Encounter for change or removal of surgical wound dressing (principal); N76.4 Abscess of vulva
CPT/HCPCS: 99283; A9270

== ENCOUNTER 2024-11-12 10:07 | Emergency (ER) | payer BC, SELFPAY ==
[2024-11-12 10:39] VITALS: BP 109/72; PULSE 82; RESP 18; TEMP 36.6; O2SAT 100; BMI 28.3
--- NOTE | 2024-11-12 10:58 | PD.EDWOUND ---
ED Wound/Laceration-RME/HPI General Chief Complaint: Wound Recheck / Suture Removal Stated Complaint: WOUND CLEANING Time Seen by Provider: 11/12/24 10:25 Source: patient Arrival date/time: 11/12/24 10:07 54-year-old female with a history of type 2 diabetes, hyperlipidemia, hypertension presents to the emergency room with a chief complaint of a wound recheck and repacking. Patient states she was seen here for an incision and drainage 2 days ago and was told to return today for repacking. Mode of arrival: ambulatory Limitations: no limitations Related Data Home Medications ?Medication ?Instructions ?Recorded ?Confirmed alprazolam 0.25 mg tablet 0.25 mg PO TID PRN Anxiety 09/27/22 10/14/24 atorvastatin 20 mg tablet 20 mg PO HS 09/27/22 10/14/24 carvedilol 25 mg tablet 25 mg PO BID 09/27/22 10/14/24 cyclobenzaprine 5 mg tablet 5 mg PO TID 09/27/22 10/14/24 calcium 600 mg capsule 600 mg PO QDAY 08/15/23 10/14/24 zinc 50 mg capsule 50 mg PO QDAY 08/15/23 10/14/24 cetirizine 5 mg-pseudoephedrine ER 1 tab PO Q12H 10/14/24 10/14/24 120 mg tablet,extended release,12hr (All Day Allergy-D) dextromethorphan-guaifenesin 30 1 tab PO Q12H 10/14/24 10/14/24 mg-600 mg tablet extended [id number] hr duloxetine 60 mg capsule,delayed mg PO 10/14/24 release gabapentin 300 mg capsule mg 10/14/24 metformin 500 mg tablet,extended mg PO 10/14/24 release 24 hr Held on 10/14/24. Instructions: Resume on 10/16/24. Hold x48 hrs then may resume. sacubitril 24 mg-valsartan 26 mg 1 tab PO BID 10/14/24 10/14/24 tablet (Entresto) tirzepatide 7.5 mg/0.5 mL 7.5 mg subcut QWEEK 10/14/24 10/14/24 subcutaneous pen injector (Inna) Previous Rx's ?Medication ?Instructions ?Recorded clindamycin HCl 300 mg capsule 300 mg PO Q6H #40 caps 11/10/24 oxycodone-acetaminophen 5 mg-325 1 tab PO Q8H PRN pain #14 tabs 11/10/24 mg tablet (Percocet) Allergies Allergy/AdvReac Type Severity Reaction Status Date / Time hydrocodone Allergy Severe VOMITING, Verified 11/12/24 10:09 RASH ondansetron Allergy Severe Seizure Verified 11/12/24 10:09 lidocaine Allergy Verified 11/12/24 10:09 Review of Systems Review of Systems Systems Reviewed: All systems reviewed, normal except as documented Constitutional Constitutional: Reports system reviewed and no additional complaints, except as documented, Denies fatigue, Denies fever(s), Denies headache(s) and Denies weakness Eyes Eyes: Reports system reviewed and no additional complaints, except as documented, Denies blurry vision and Denies change in vision ENT Ears, Nose, Mouth, and Throat: Reports system reviewed and no additional complaints, except as documented, Denies otalgia, Denies headache(s), Denies nasal congestion, Denies throat swelling and Denies vertigo Cardiovascular Cardiovascular: Reports system reviewed and no additional complaints, except as documented, Denies chest pain, Denies dyspnea and Denies dyspnea on exertion Respiratory Respiratory: Reports system reviewed and no additional complaints, except as documented, Denies chest congestion, Denies cough, Denies dyspnea, Denies dyspnea on exertion and Denies wheezing Gastrointestinal Gastrointestinal: Reports system reviewed and no additional complaints, except as documented, Denies abdominal pain, Denies cramping, Denies nausea and Denies vomiting Genitourinary Genitourinary: Reports system reviewed and no additional complaints, except as documented Musculoskeletal Musculoskeletal: Reports system reviewed and no additional complaints, except as documented and Denies back pain Integumentary/Breasts Skin/Breast: Reports system reviewed and no additional complaints, except as documented and Reports wounds Neurologic Neurologic: Reports system reviewed and no additional complaints, except as documented, Denies confusion, Denies headache(s), Denies lack of coordination, Denies vertigo and Denies weakness Psychiatric Psychiatric: Reports system reviewed and no additional complaints, except as documented, Denies anxiety, Denies confusion, Denies depression, Denies paranoia, Denies suicidal ideation and Denies tactile hallucinations Endocrine Endocrine: Reports system reviewed and no additional complaints, except as documented and Denies fatigue Hematologic/Lymphatic Hematologic/Lymphatic: Reports system reviewed and no additional complaints, except as documented and Denies lymphadenopathy Allergic/Immunologic Allergic/Immunologic: Reports system reviewed and no additional complaints, except as documented, Denies throat swelling, Denies urticaria and Denies wheezing Past Medical History Past Medical History NEUROLOGIC: Positive Transient Ischemic Attacks (TIA), Brain Tumor, Seizures and Migraine; Negative Mclaughlin's Palsy CARDIAC: Positive Cardiac Disorders, Hypercholesterolemia, Congestive Heart Failure, Congenital Heart Disease, Deep Vein Thrombosis and Hypertension; Negative Myocardial Infarction or Edema RESPIRATORY: Positive Asthma, Bronchitis and Sleep Apnea; Negative Chronic Obstructive Pulmonary Disease (COPD), Emphysema or Pneumonia GASTROINTESTINAL: Positive Gastrointestinal Disorders (esphagus expansionx2), Diverticulosis (remval middle section of colon), Hiatal Hernia and Gastroesophageal Reflux Disease; Negative Hepatitis, Cirrhosis, Gastrointestinal Bleed, Ulcer or Crohn's Disease GENITOURINARY: Positive Kidney Stones; Negative Genitourinary Disorders or Renal Disease REPRODUCTIVE: Positive Previous Pregnancies; Negative Endometriosis, Pelvic Inflammatory Disease or Uterine Prolapse MUSCULOSKELETAL: Positive Musculoskeletal Disorders, Arthritis, Carpal Tunnel Syndrome, Fibromyalgia and Fractures (foot left-); Negative Rheumatoid Arthritis or Osteomyelitis ENDOCRINE: Positive Endocrine Disorders and Diabetes Mellitus Type 2; Negative Diabetes Mellitus Type 1, Hypoglycemia, Hyperthyroidism or Hypothyroidism HEMATOLOGIC: Positive Anemia; Negative Blood Disorders or Sickle Cell Disease PSYCHO/SOCIAL: Negative Depression or Anxiety OTHER HISTORY: Positive Falls, Anesthesia Reactions and Chicken Pox; Negative Autoimmune Disease, Blood Transfusions, Blood Transfusion Reaction, Organ Transplant, Chemotherapy, Radiation Therapy, MRSA, VRSA, Vancomycin-Resistant Enterococci, Measles, Mumps or Cancer Family History FAMILY HISTORY: Positive Family Cardiac Disorders; Negative Family Psychiatric Problems, Family Respiratory Disorders, Family Gastrointestinal Problems, Family Cancer, Family Surgery or Family Anesthesia Reaction Surgical History SURGICAL: Positive Pacemaker, Angiogram, Auto Implanted Cardiovert Defib, Abdominal Surgery, Neurologic Surgery, Hysterectomy and Tubal Ligation; Negative Endocrine Surgery, Thyroidectomy, Ear Surgery or Organ Transplant Social History SMOKING STATUS: Never smoker SUBSTANCE USE: does not use ED Exam General Limitations: Present no limitations General appearance: Present alert and in no apparent distress Head Head exam: Present atraumatic Eye Eye exam: Present normal appearance, PERRL and EOMI ENT ENT exam: Present normal exam, normal oropharynx and mucous membranes moist Neck Neck exam: Present normal inspection, full ROM and trachea midline Chest Chest inspection: Present normal inspection and symmetric chest wall rise Respiratory Respiratory exam: Present normal lung sounds bilaterally Cardiovascular Cardiovascular exam: Present regular rate, normal rhythm and normal heart sounds Abdominal Exam Abdominal exam: Present soft and normal bowel sounds External exam: Present erythema and tenderness Genitals Female CloseUp:  1. There is a abscess that was drained 2 days ago. Today it is still erythemic it is not warm to the touch the patient states the tenderness is actually decreased and it is no longer draining pus. Extremities Exam Extremities exam: Present normal inspection and full ROM Back Exam Back exam: Present normal inspection and full ROM Neurological Exam Neurological exam: Present alert, oriented X3 and CN II-XII intact Psychiatric Psychiatric exam: Present normal affect and normal mood Skin Skin exam: Present warm, dry, intact and normal color Course Quality Measures none Vital Signs Vital signs: Vital Signs Temperature 97.9 F 11/12/24 10:39 Pulse Rate 82 11/12/24 10:39 Respiratory Rate 18 11/12/24 10:39 Blood Pressure 109/72 11/12/24 10:39 Pulse Oximetry (%) 100 11/12/24 10:39 Oxygen Delivery Method Room Air 11/12/24 10:39 O2 saturation 100% within normal limit Wound / Laceration MDM Narrative MDM Narrative:: 54-year-old female with a history of type 2 diabetes, hyperlipidemia, hypertension presents to the emergency room with a chief complaint of a wound recheck and repacking. Patient states she was seen here for an incision and drainage 2 days ago and was told to return today for repacking. Patient is hemodynamically stable she is afebrile not tachycardic and not tachypneic. Physical examination shows a abscess that is about 5 cm. There is a small open incision that was created on it 2 days ago for drainage. There is no packing inside the area the area is still erythemic but is not warm to the touch anymore. There is no pus that is draining and the area appears to be healing appropriately. I irrigated the area I cleaned it and I inserted new packing into the incision. A dressing was placed. The patient was educated to follow-up with her primary care provider to continue taking her oral antibiotics and to return to the emergency room for any evidence of worsening signs or symptoms. Patient states that her pain has progressively decreased since the time Patient data External records reviewed:: [facility] previous records Clinical information provided by:: patient Social determinants that could affect healthcare access:: none Patient has the following chronic illnesses:: No chronic illness How is presenting disease/condition affected by chronic disease/condition?: no chronic disease Evaluation data The following diagnostics were reviewed and interpreted by me:: lab results and radiology exam(s) Lab and/or radiology exams considered but not ordered:: Labs and radiology exams considered and ordered Interpretation Summary: N/A Medications / Prescriptions Medications or Prescriptions considered but not ordered:: No medication given Medication administrations:: No medication given Consultations Consultation(s) initiated? (list below): No Diagnosis Wound Differential Diagnosis: laceration, abscess and abrasion Most likely diagnosis given after review of the tests above:: Abscess Admission Indicated Admission indicated?: not indicated Admission Request Was there a request for admission?: No Disposition Plan Disposition Plan: Discharge Discharge Attestation Discharge Attestation: The patient and all family members were given an opportunity to ask questions and understood the discharge instructions. Discharge instructions specifically effects, indications for sooner follow up or return to the emergency department, and the expected course of current diagnosis. Patient condition: Stable Discharge Plan Plan Patient Disposition: HOME (Self Care) Disposition Comment: Stable Prescriptions/Referrals Prescriptions/Med Rec: No Action atorvastatin 20 mg tablet 20 mg PO HS Patient Comments: TAKE 1 TABLET BY MOUTH EVERYDAY AT BEDTIME carvedilol 25 mg Tablet 25 mg PO BID Rx Instructions: must administer with a meal/food alprazolam 0.25 mg Tablet 0.25 mg PO TID PRN (Reason: Anxiety) cyclobenzaprine 5 mg Tablet 5 mg PO TID calcium 600 mg Capsule 600 mg PO QDAY zinc 50 mg Capsule 50 mg PO QDAY gabapentin 300 mg capsule Patient Comments: TAKE 1 CAPSULE BY MOUTH EVERY DAY FOR 30 DAYS metformin 500 mg tablet extended release 24 hr PO Patient Comments: TAKE 2 TABLETS BY MOUTH TWICE A DAY Entresto 24-26 mg tablet 1 tab PO BID duloxetine 60 mg capsule,delayed release(DR/EC) PO Patient Comments: TAKE 1 CAPSULE BY MOUTH EVERY DAY DIRECTED dextromethorphan-guaifenesin 30-600 mg tablet extended release 12 hr 1 tab PO Q12H cetirizine-pseudoephedrine [All Day Allergy-D] 5-120 mg tablet extended release 12 hr 1 tab PO Q12H Mounjaro 7.5 mg/0.5 mL pen injector 7.5 mg subcut QWEEK clindamycin HCl 300 mg capsule 300 mg PO Q6H Qty: 40 0RF oxycodone-acetaminophen [Percocet] 5-325 mg tablet 1 tab PO Q8H MDD 3 PRN (Reason: pain) Qty: 14 0RF Problem List Clinical Impression: Encounter for wound re-check Patient/Caregiver Discharge Instructions Education Materials: Abscess Drainage, ED Wound Check (Infection), ED Wound Care Additional Instructions: Please follow-up with your primary care provider in the next 24 to 48 hours. The wound appears to be healing appropriately. The area was cleaned new packing was placed inside the wound and the wound appears to be healing appropriately. Please continue to take your antibiotics as prescribed. If you begin to develop worsening signs or symptoms please return to the emergency room immediately Please control your sugars as this is very important when dealing with wounds and abscesses. For any evidence of worsening signs or symptoms return to the emergency room. Print Language: Djiboutian Stand Alone Forms: [employer] Award Info., Patient Portal Info Letter PA/ILIANA Supervising Physician ANTONIA/ILIANA Supervising Physician: Dr Sims
== END 2024-11-12 12:33 | disposition home or self-care (01) ==
LOC: SERX 11:02
PROVIDERS: Emergency Provider Emergency Medicine
DX: Z48.01 Encounter for change or removal of surgical wound dressing (principal); E11.9 Type 2 diabetes mellitus without complications; E78.5 Hyperlipidemia, unspecified; I10 Essential (primary) hypertension
CPT/HCPCS: 99282

== ENCOUNTER → 2024-11-14 | Outpatient (CLI) | payer BC, SELFPAY | END | disposition home or self-care (01) | LOC: SWHD 08:08 | PROVIDERS: PCP Internal Medicine; Referring Provider Internal Medicine; Visit Provider Physician Assistant | DX: L02.214 Cutaneous abscess of groin (principal); S31.103A Unspecified open wound of abdominal wall, right lower quadrant without penetration into peritoneal cavity, initial encounter; X58.XXXA Exposure to other specified factors, initial encounter; Z79.4 Long term (current) use of insulin; E11.40 Type 2 diabetes mellitus with diabetic neuropathy, unspecified; J45.909 Unspecified asthma, uncomplicated; I50.20 Unspecified systolic (congestive) heart failure; I42.9 Cardiomyopathy, unspecified; K21.9 Gastro-esophageal reflux disease without esophagitis; E78.5 Hyperlipidemia, unspecified | CPT/HCPCS: 97597; 99212; A9270; G0463 ==

== ENCOUNTER → 2024-11-24 | Outpatient (CLI) | payer BC, SELFPAY | END | disposition home or self-care (01) | LOC: SWHD 14:03 | PROVIDERS: PCP Internal Medicine; Referring Provider Internal Medicine; Visit Provider Student in an Organized Health Care Education/Training Program | DX: L02.214 Cutaneous abscess of groin (principal); S31.103A Unspecified open wound of abdominal wall, right lower quadrant without penetration into peritoneal cavity, initial encounter; X58.XXXA Exposure to other specified factors, initial encounter; Z79.4 Long term (current) use of insulin; E11.40 Type 2 diabetes mellitus with diabetic neuropathy, unspecified; J45.909 Unspecified asthma, uncomplicated; E78.5 Hyperlipidemia, unspecified; K21.9 Gastro-esophageal reflux disease without esophagitis; I42.9 Cardiomyopathy, unspecified; I50.20 Unspecified systolic (congestive) heart failure | CPT/HCPCS: 99213; A9270; G0463 ==

== ENCOUNTER 2024-11-28 10:18 | Day surgery (SDC) | payer BC, SELFPAY ==
[2024-11-26 09:44] VITALS: BMI 29.2
--- NOTE | 2024-11-27 07:00 | EKG_ITS ---
[facility] Test Date: 2024-11-27 Pat Name: ROBYN FISCHER Department: Room: - Gender: Female Parent Aide: WALT : 1970 Requested By: Raya Bailey Order Number: [id number] Reading MD: Raya Bailey Measurements Intervals [place] Rate: 80 P: 69 AR: 139 QRS: -42 QRSD: 130 T: 97 QT: 393 QTc: 455 Interpretive Statements ELECTRONIC VENTRICULAR PACEMAKER ABNORMAL RHYTHM ECG Compared to ECG 10/13/2024 12:11:42 No significant changes /store/S0/[id number].pdf
[2024-11-27 09:03] LABS: Basophils # (Auto) 0.1 Thou/mm3 (0.0-0.2); Basophils % (Auto) 1 % (0-2.5); Eosinophils # (Auto) 0.1 Thou/mm3 (0.0-0.5); Eosinophils % (Auto) 1 % (0-10); Hematocrit 32.8 % (36.0-46.0); Hemoglobin 10.7 g/dL (12.0-16.0); Immature Granulocytes % (Auto) 1 % (0-0); Immature Granulocytes Auto 0.04 Thou/mm3 (0.00-0.00); Lymphocytes # (Auto) 2.4 Thou/mm3 (1.0-4.8); Lymphocytes % (Auto) 29 % (10-50); Mean Corpuscular HGB Conc 32.6 g/dl (31.0-37.0); Mean Corpuscular Hemoglobin 28.3 pg (25.0-35.0); Mean Corpuscular Volume 87 fL (80-100); Monocytes # (Auto) 0.6 Thou/mm3 (0.0-0.8); Monocytes % (Auto) 7 % (0-12); Neutrophils # (Auto) 5.3 Thou/mm3 (1.8-7.7); Neutrophils % (Auto) 62 % (37-80); Nucleated Red Blood Cell % 0 /100 WBC (0); Platelet Count 302 Thou/mm3 (140-440); RDW Standard Deviation 41.8 fL (36.4-46.3); Red Blood Count 3.78 Miln/mm3 (4.00-5.20); White Blood Count 8.5 Thou/mm3 (3.6-11.0)
[2024-11-27 09:11] LABS: Partial Thromboplastin Time 27.9 Seconds (22.0-36.0); Prothrombin Time 10.9 Seconds (9.0-12.2)
[2024-11-27 09:17] LABS: Anion Gap 7 (7-16); BUN/Creatinine Ratio 22 Ratio (12-20); Blood Urea Nitrogen 28 mg/dL (9-23); Carbon Dioxide 27.6 mMol/L (20.0-31.0); Chloride 100 mMol/L (98-107); Creatinine (Component) 1.3 mg/dL (0.6-1.3); Estimated Creatinine Clearance 41.6 mL/min (>60); Glucose 168 mg/dL (74-106); Osmolality,Calculated 279 (275-295); Potassium 4.6 mMol/L (3.4-5.1); Sodium 135 mMol/L (136-145); eGFR 48 See Note
[2024-11-28] VITALS (11 sets, daily range): BP systolic 142–193; BP diastolic 63–115; PULSE 80–99; RESP 11–20; TEMP 36.1–36.5; O2SAT 98–100
[2024-11-28] MEDS: hydrALAZINE INJ 20 MG/ML VIAL 10 MG IV (13:26)
[2024-11-28] MEDS: VANCOMYCIN/NS 1 GM IVPB 200 ML IV (13:27)
[2024-11-28] MEDS: carVEDILOL 12.5 MG TABLET 25 MG PO (13:28)
--- NOTE | 2024-11-28 15:44 | PC.NURSE ---
1430 patient is awake, alert, breathing unlabored, s/p AICD change out by Dr. Marquez, dressing dry with no bleeding, report received from Myra VELÁSQUEZ, patient has Vancomycin antibiotic infusin and be dischaged after completion of antibiotic. Keflex antibiotic will be prescribed by Md office to be started tonight. 1530 patient is awake, alert, breathing unlabored, dressing dry with no bleeding. discharge instructions given to jo and daughter Trixie, patient discharged home in wheelchair with all belongings.
--- NOTE | 2024-11-29 17:16 | ESOP_ITS ---
RE: ROBYN FISCHER : 1970 DATE OF OPERATION: 11/28/2024 PROCEDURE PERFORMED: 1. Removal and replacement of cardiac resynchronization therapy multi-lead, _CRTdefibrillator DATABASE ANALYST-D with multiple leads, CPT code 39397. 2. Conscious sedation 30 minute duration. DIAGNOSES: Nonischemic cardiomyopathy, systolic heart failure, status post ICD, DATABASE ANALYST-D defibrillator implantation, multiple leads, elective replacement indicated. HISTORY AND INDICATIONS: The patient is a 54-year-old female with history of nonischemic cardiomyopathy, chronic systolic heart failure, diabetes mellitus, and hypertension, has DATABASE ANALYST-D defibrillator implantation in 2019 for chronic systolic heart failure, low ejection fraction and underwent the device implantation. Recent analysis after 6 years showed evidence of elective replacement indicated battery depletion. The patient recommended DATABASE ANALYST-D defibrillator, generator removal and replacement under conscious sedation. DESCRIPTION OF PROCEDURE: The patient was brought to cardiac catheterization laboratory. She was given 2 mg of Versed and 100 mcg of fentanyl for sedation. Left subclavian area was prepared in sterile fashion. 1% Xylocaine local anesthesia was given. A linear incision was made with a blunt dissection, pocket was created and opened. Capsule was resected. DATABASE ANALYST defibrillator generator was then explanted successfully. Threshold of atrial and RV and LV leads were measured and found to be excellent. After obtaining satisfactory threshold, the leads were attached to the new DATABASE ANALYST-D defibrillator, DATABASE ANALYST-D generator by [employer]. The device was attached and secured and all the thresholds were measured and found to be excellent. Connections were excellent. Afterwards, the device was secured to the pectoral fascia with 2-0 silk suture. Subcuticular incisions were closed using 2-0 chromic continuous sutures. Skin was closed using elian. The patient tolerated the operation well. There were no complications. The device that was removed explanted was implanted initially on 11/29/2018, 6 years ago. The explanted device model number is [id number], serial number is [id number]. Today the new implanted device is DATABASE ANALYST-D defibrillator, Leonore Heart Failure, [id number], DATABASE ANALYST-D by [employer], serial number is [id number]. The leads are in place that are implanted in 2019. The RV lead, high voltage lead 65 cm, 7122, Dur[employer], serial number is [id number]. Atrial lead is [employer] 2088, 52 cm length, serial number [id number]. The LV lead is implanted again in 2019, model number is [id number], 86 cm length serial number [id number]. The thresholds are as follows: The atrial threshold was not performed. LV threshold is 2.25 volts at 0.5 milliseconds _ threshold 2.25. High voltage impedance 77 ohms. The device is programmed on VT1 _ 160 beats per minute, VT2 181, VF zone 214. The device is programmed to DDR mode, rate of 60, low rate limit, upper rate limit of 130. FINAL SUMMARY: Successful removal and replacement of DATABASE ANALYST-D defibrillator generator. No complications. cc: Raya Marquez MD DT: 16:15:15 TT: 17:12:00 Ref: [id number] - TID: [id number]
== END 2024-11-28 15:30 | disposition home or self-care (01) ==
PROVIDERS: PCP Internal Medicine; Referring Provider Internal Medicine Cardiovascular Disease; Visit Provider Internal Medicine Cardiovascular Disease
PROC: 0JPT0PZ Removal of Cardiac Rhythm Related Device from Trunk Subcutaneous Tissue and Fascia, Open Approach (ICD-10-PCS; CPT 33264; principal; 2024-11-28 11:30)
DX: I42.8 Other cardiomyopathies (principal); Z01.810 Encounter for preprocedural cardiovascular examination; I50.22 Chronic systolic (congestive) heart failure; I11.0 Hypertensive heart disease with heart failure; E11.9 Type 2 diabetes mellitus without complications
CPT/HCPCS: 33264; 36415; 80048; 85025; 85610; 85730; 93005; 99152; 99153; A4649; C1882; J0171; J0360; J0461; J0689; J2250; J2310; J2371; J3010; J3370; J3490; A9270

== ENCOUNTER → 2024-12-01 | Outpatient (CLI) | payer BC, SELFPAY | END | disposition home or self-care (01) | LOC: SWHD 14:14 | PROVIDERS: PCP Internal Medicine; Referring Provider Internal Medicine; Visit Provider Student in an Organized Health Care Education/Training Program | DX: L02.214 Cutaneous abscess of groin (principal); S31.103A Unspecified open wound of abdominal wall, right lower quadrant without penetration into peritoneal cavity, initial encounter; X58.XXXA Exposure to other specified factors, initial encounter; Z79.4 Long term (current) use of insulin; E11.40 Type 2 diabetes mellitus with diabetic neuropathy, unspecified; J45.909 Unspecified asthma, uncomplicated; I50.20 Unspecified systolic (congestive) heart failure; I42.9 Cardiomyopathy, unspecified; K21.9 Gastro-esophageal reflux disease without esophagitis; E78.5 Hyperlipidemia, unspecified | CPT/HCPCS: 99213; A9270; G0463 ==

== ENCOUNTER 2024-12-05 22:22 | Emergency (ER) | payer BC, SELFPAY ==
[2024-12-05 22:24] VITALS: BMI 28.3
[2024-12-05 23:02] VITALS: BP 117/71; PULSE 84; RESP 18; TEMP 36.8; O2SAT 97
--- NOTE | 2024-12-05 23:29 | XR_ITS ---
Examination: Ribs, right, with PA chest, 5 views Technique: Chest PA, RIBS AP, RPO, LPO, AP coned lower ribs 5 views Exam date and time: December 05, 2024 and 37 hours INDICATIONS: Patient fell 6 days ago with injury to the chest Findings: Normal heart size No pneumothorax Cardiac leads satisfactory position No acute rib fractures IMPRESSION: No pneumothorax pulmonary contusion or hemothorax No acute rib fractures
--- NOTE | 2024-12-05 23:29 | XR_ITS ---
Examination: CT thoracic spine, without contrast. 2-D sagittal reconstructions. 2-D coronal reconstructions. 3-D reconstructions. Date and time of exam:December 06, 2024 0023 hours INDICATIONS: Patient fell today with injury to the mid back, mid back pain CTDI: vol (mGy):22.7 DLP: (mGycm):772 Technique: Multiple 1.25 mm axial sections of the thoracic spine without intravenous contrast have been obtained. 2-D sagittal and coronal reconstructions have been obtained. 3-D reconstructions have been obtained. Low dose protocols were performed. One or more of the following dose reduction techniques were used; automated exposure control, adjustment of the mA and/or KV according to patient size, use of iterative reconstruction technique. Findings: Satisfactory alignment thoracic vertebral bodies No thoracic fracture and Mild diffuse thoracic disc narrowing Mild thoracic spondylosis IMPRESSION: No thoracic fracture
--- NOTE | 2024-12-06 01:44 | PRELIM_ITS ---
CT scan of the thoracic spine without intravenous contrast (axial sections with sagittal and coronal reformats). December 06, 2024 0023 hours Clinical History: back injury Comparison: None Findings: There is generalized osteopenia. There is no fracture, traumatic subluxation or other acute osseous abnormality of the thoracic spine. There is degenerative change in the thoracic spine. The gallbladder is surgically absent. The paraspinous soft tissues are unremarkable. Impression: No acute osseous abnormality of the thoracic spine. Report Electronically Signed By: Barry Jarrett 12/06/2024 1:42:52 AM [EST]
--- NOTE | 2024-12-06 02:18 | PD.EDBACK ---
ED Back Injury Pain RME/HPI General Chief Complaint: Back Pain/Injury Stated Complaint: RT FLANK PAIN-FALL Time Seen by Provider: 12/05/24 23:20 Arrival date/time: 12/05/24 22:22 This is a case of a 54-year-old female came in in the emergency room due to rib pain and mid back pain history of present illness started last Sunday when the patient was walking and fell on his right side and hitting her right rib on the table patient did not have any loss of consciousness denies any head chest or neck injury patient has no shortness of breath no chest pain Limitations: no limitations Related Data Home Medications ?Medication ?Instructions ?Recorded ?Confirmed alprazolam 0.25 mg tablet 0.25 mg PO TID PRN Anxiety 09/27/22 11/28/24 atorvastatin 20 mg tablet 20 mg PO HS 09/27/22 11/28/24 carvedilol 25 mg tablet 25 mg PO BID 09/27/22 11/28/24 cyclobenzaprine 5 mg tablet 5 mg PO TID 09/27/22 11/28/24 calcium 600 mg capsule 600 mg PO QDAY 08/15/23 11/28/24 zinc 50 mg capsule 50 mg PO QDAY 08/15/23 11/28/24 cetirizine 5 mg-pseudoephedrine ER 1 tab PO Q12H 10/14/24 11/28/24 120 mg tablet,extended release,12hr (All Day Allergy-D) dextromethorphan-guaifenesin 30 1 tab PO Q12H 10/14/24 11/28/24 mg-600 mg tablet extended hr duloxetine 60 mg capsule,delayed 60 mg PO PRN depression and anxiety 10/14/24 release gabapentin 300 mg capsule mg 10/14/24 metformin 500 mg tablet,extended 500 mg PO DAILY 10/14/24 11/28/24 release 24 hr sacubitril 24 mg-valsartan 26 mg 1 tab PO BID 10/14/24 11/28/24 tablet (Entresto) tirzepatide 7.5 mg/0.5 mL 7.5 mg subcut QWEEK 10/14/24 11/28/24 subcutaneous pen injector (Inna) aspirin 81 mg capsule 81 mg PO QDAY 11/28/24 11/28/24 Held on 11/28/24. Instructions: Resume on 11/29/24. resume tomorrow Sunday11/29/24 Previous Rx's ?Medication ?Instructions ?Recorded clindamycin HCl 300 mg capsule 300 mg PO Q6H #40 caps 11/10/24 oxycodone-acetaminophen 5 mg-325 1 tab PO Q8H PRN pain #14 tabs 11/10/24 mg tablet (Percocet) cyclobenzaprine 10 mg tablet 10 mg PO BID PRN muscle spasm #10 12/06/24 tabs naproxen 500 mg tablet (Naprosyn) 500 mg PO BID PRN pain #20 tabs 12/06/24 Allergies Allergy/AdvReac Type Severity Reaction Status Date / Time hydrocodone Allergy Severe VOMITING, Verified 11/26/24 09:42 RASH ondansetron Allergy Severe Seizure Verified 11/26/24 09:42 lidocaine Allergy Verified 11/26/24 09:42 Review of Systems Review of Systems Systems Reviewed: All systems reviewed, normal except as documented Cardiovascular Cardiovascular: Reports system reviewed and no additional complaints, except as documented Respiratory Respiratory: Reports system reviewed and no additional complaints, except as documented Gastrointestinal Gastrointestinal: Reports system reviewed and no additional complaints, except as documented Musculoskeletal Musculoskeletal: Reports system reviewed and no additional complaints, except as documented, Reports as per HPI, Denies abnormal gait, Denies atrophy, Reports back pain, Denies deformity, Denies limited range of motion and Denies muscle cramps Neurologic Neurologic: Reports system reviewed and no additional complaints, except as documented and Denies abnormal gait Past Medical History Past Medical History NEUROLOGIC: Positive Neurological Disorders, Transient Ischemic Attacks (TIA), Brain Tumor, Seizures and Migraine; Negative Mclaughlin's Palsy CARDIAC: Positive Cardiac Disorders, Hypercholesterolemia, Congestive Heart Failure, Congenital Heart Disease, Deep Vein Thrombosis and Hypertension; Negative Myocardial Infarction or Edema RESPIRATORY: Positive Asthma, Bronchitis and Sleep Apnea; Negative Chronic Obstructive Pulmonary Disease (COPD), Emphysema or Pneumonia GASTROINTESTINAL: Positive Gastrointestinal Disorders, Diverticulosis, Hiatal Hernia and Gastroesophageal Reflux Disease; Negative Hepatitis, Cirrhosis, Gastrointestinal Bleed, Ulcer or Crohn's Disease GENITOURINARY: Positive Genitourinary Disorders and Kidney Stones; Negative Renal Disease REPRODUCTIVE: Positive Previous Pregnancies; Negative Endometriosis, Pelvic Inflammatory Disease or Uterine Prolapse MUSCULOSKELETAL: Positive Musculoskeletal Disorders, Arthritis, Carpal Tunnel Syndrome, Fibromyalgia and Fractures; Negative Rheumatoid Arthritis or Osteomyelitis ENDOCRINE: Positive Endocrine Disorders and Diabetes Mellitus Type 2; Negative Diabetes Mellitus Type 1, Hypoglycemia, Hyperthyroidism or Hypothyroidism HEMATOLOGIC: Positive Blood Disorders and Anemia; Negative Sickle Cell Disease PSYCHO/SOCIAL: Positive Anxiety; Negative Depression OTHER HISTORY: Positive Falls, Anesthesia Reactions and Chicken Pox; Negative Autoimmune Disease, Blood Transfusions, Blood Transfusion Reaction, Organ Transplant, Chemotherapy, Radiation Therapy, MRSA, VRSA, Vancomycin-Resistant Enterococci, Measles, Mumps or Cancer Family History FAMILY HISTORY: Positive Family Cardiac Disorders; Negative Family Psychiatric Problems, Family Respiratory Disorders, Family Gastrointestinal Problems, Family Cancer, Family Surgery or Family Anesthesia Reaction Surgical History SURGICAL: Positive Cardiac Surgery, Pacemaker, Angiogram, Auto Implanted Cardiovert Defib, Abdominal Surgery, Bowel Surgery (colon resection), Neurologic Surgery, Hysterectomy and Tubal Ligation; Negative Endocrine Surgery, Thyroidectomy, Ear Surgery or Organ Transplant Social History SMOKING STATUS: Never smoker SUBSTANCE USE: does not use ED Exam General Limitations: Present no limitations General appearance: Present alert and in no apparent distress Head Head exam: Present atraumatic Eye Eye exam: Present normal appearance, PERRL and EOMI ENT ENT exam: Present normal exam, normal oropharynx and mucous membranes moist Neck Neck exam: Present normal inspection, full ROM and trachea midline Chest Chest inspection: Present normal inspection, symmetric chest wall rise and other (Patient noted to have mild tenderness on the posterior lateral rib with contusion no hematoma no crepitation no deformity no palpable rib fracture); Absent tenderness, rash or abscess Respiratory Respiratory exam: Present normal lung sounds bilaterally; Absent respiratory distress, wheezes, stridor, accessory muscle use or prolonged expiratory phase Cardiovascular Cardiovascular exam: Present regular rate, normal rhythm and normal heart sounds Abdominal Exam Abdominal exam: Present soft and normal bowel sounds; Absent distention, tenderness, guarding, rebound, rigidity or diminished bowel sounds Extremities Exam Extremities exam: Present normal inspection and full ROM; Absent tenderness Expanded Lower Extremity Exam Hip/Pelvis exam: Present normal inspection Neurovascular/Tendon exam: Present normal capillary refill; Absent pulse deficit, motor deficit, sensory deficit or tendon deficit Gait: observed and normal Back Exam Back exam: Present normal inspection, full ROM and tenderness (Noted mild tenderness on the thoracic area right no crepitation no deformity no CVA tenderness ROM intact pulses were full and intact throughout motor or sensory reflexes were normal capillary refill less than 2 seconds no swelling no redness); Absent vertebral tenderness Neurological Exam Neurological exam: Present alert, oriented X3 and CN II-XII intact Psychiatric Psychiatric exam: Present normal affect and normal mood Skin Skin exam: Present warm, dry, intact and normal color Course Quality Measures none Orders Category Date Time Status CT thoracic spine wo con Stat Exams 12/05/24 23:29 Taken XR ribs RT min 3V w CXR1V Stat Exams 12/05/24 23:29 Completed Ketorolac Inj [Toradol Inj] Med 12/06/24 02:18 Once 60 mg IM X1 ONE Vital Signs Vital signs: Vital Signs Temperature 98.2 F 12/05/24 23:02 Pulse Rate 84 12/05/24 23:02 Respiratory Rate 18 12/05/24 23:02 Blood Pressure 117/71 12/05/24 23:02 Pulse Oximetry (%) 97 12/05/24 23:02 Oxygen Delivery Method Room Air 12/05/24 23:02 Oxygen saturation 97% on room air Back Pain / Injury MDM Narrative MDM Narrative:: This is a case of a 54-year-old female came in in the emergency room due to rib pain and mid back pain history of present illness started last Sunday when the patient was walking and fell on his right side and hitting her right rib on the table patient did not have any loss of consciousness denies any head chest or neck injury patient has no shortness of breath no chest pain physical examination patient is awake alert oriented not in distress nontoxic looking not tachypneic tachycardic tachycardic afebrile patient noted to have mild to moderate tenderness on the posterior lateral rib with contusion no hematoma no cellulitis no abscess no palpable rib fracture no crepitation no deformity noted mild tenderness on the right thoracic area no crepitation no deformity no paravertebral tenderness no paraspinal tenderness no CVA tenderness straight leg exam is normal steady gait neurovascular intact CT scan of the thoracic is normal no fracture no dislocation x-ray of the ribs is normal no fracture patient was given Toradol here in the emergency room which patient condition markedly improved pain decreased no shortness of breath no pneumothorax no diminished breath sounds no crepitation no deformity lungs sound is clear at this point patient will be discharged home in stable condition patient is aware for any worsening symptoms or any emergent concern patient is to return in the emergency room immediately or call 911 patient will follow up with PCP in 2 days ice pack and warm compress as needed for pain patient was discharged with naproxen for pain and Flexeril for muscle spasm patient discharged with steady gait and stable vital signs Patient data External records reviewed:: [facility] previous records Clinical information provided by:: patient Social determinants that could affect healthcare access:: none Patient has the following chronic illnesses:: No chronic disease How is presenting disease/condition affected by chronic disease/condition?: no chronic disease Evaluation data The following diagnostics were reviewed and interpreted by me:: radiology exam(s) Lab and/or radiology exams considered but not ordered:: Reviewed Interpretation Summary: Not indicated Medications / Prescriptions Medications or Prescriptions considered but not ordered:: Normal Medication administrations:: Medication Administration History Discontinued Medications Ketorolac Tromethamine (Ketorolac Inj 60 Mg/2 Ml Vial) 60 mg IM X1 ONE Stop: 12/06/24 02:19 Given Consultations Consultation(s) initiated? (list below): No Diagnosis Differential diagnosis back pain/injury: lumbar radiculopathy, strain of lumbar region, pyelonephritis and thoracic back pain Most likely diagnosis given after review of the tests above:: Contusion Admission Indicated Admission indicated?: not indicated Admission Request Was there a request for admission?: No Admission Attestation Admission request attestation: Not indicated Disposition Plan Disposition Plan: Discharge Discharge Attestation Discharge Attestation: The patient and all family members were given an opportunity to ask questions and understood the discharge instructions. Discharge instructions specifically effects, indications for sooner follow up or return to the emergency department, and the expected course of current diagnosis. Patient condition: Stable Discharge Plan Plan Patient Disposition: HOME (Self Care) Discharge Disposition comment: Stable Prescriptions/Referrals Prescriptions/Med Rec: New cyclobenzaprine 10 mg tablet 10 mg PO BID PRN (Reason: muscle spasm) Qty: 10 0RF naproxen [Naprosyn] 500 mg tablet 500 mg PO BID PRN (Reason: pain) Qty: 20 0RF No Action aspirin 81 mg capsule 81 mg PO QDAY atorvastatin 20 mg tablet 20 mg PO HS Patient Comments: TAKE 1 TABLET BY MOUTH EVERYDAY AT BEDTIME carvedilol 25 mg Tablet 25 mg PO BID Rx Instructions: must administer with a meal/food alprazolam 0.25 mg Tablet 0.25 mg PO TID PRN (Reason: Anxiety) cyclobenzaprine 5 mg Tablet 5 mg PO TID calcium 600 mg Capsule 600 mg PO QDAY zinc 50 mg Capsule 50 mg PO QDAY gabapentin 300 mg capsule Patient Comments: TAKE 1 CAPSULE BY MOUTH EVERY DAY FOR 30 DAYS metformin 500 mg tablet extended release 24 hr 500 mg PO DAILY Patient Comments: TAKE 2 TABLETS BY MOUTH TWICE A DAY Entresto 24-26 mg tablet 1 tab PO BID duloxetine 60 mg capsule,delayed release(DR/EC) 60 mg PO PRN (Reason: depression and anxiety) Patient Comments: TAKE 1 CAPSULE BY MOUTH EVERY DAY DIRECTED dextromethorphan-guaifenesin 30-600 mg tablet extended release 12 hr 1 tab PO Q12H cetirizine-pseudoephedrine [All Day Allergy-D] 5-120 mg tablet extended release 12 hr 1 tab PO Q12H Mounjaro 7.5 mg/0.5 mL pen injector 7.5 mg subcut QWEEK clindamycin HCl 300 mg capsule 300 mg PO Q6H Qty: 40 0RF oxycodone-acetaminophen [Percocet] 5-325 mg tablet 1 tab PO Q8H MDD 3 PRN (Reason: pain) Qty: 14 0RF Referrals: Jackie Huff MD [Primary Care Provider] - In 1 week Problem List Clinical Impression: Contusion of rib on right side, Rib sprain, Sprain of thoracic region Patient/Caregiver Discharge Instructions Education Materials: Bruises (Contusions), ED Back Sprain/Strain, ED Contusion, Rib Print Language: Korean Stand Alone Forms: [employer] Award Info., Patient Portal Info Letter PA/FITNESS PLAN COORDINATOR Supervising Physician PA/FITNESS PLAN COORDINATOR Supervising Physician: dr chavez
[2024-12-06] MEDS: KETOROLAC INJ 60 MG/2 ML VIAL IM (02:24)
[2024-12-06 02:27] VITALS: BP 100/63; PULSE 81; RESP 17; TEMP 36.6; O2SAT 98
== END 2024-12-06 02:49 | disposition home or self-care (01) ==
PROVIDERS: Emergency Provider Emergency Medicine; PCP Internal Medicine
DX: S23.3XXA Sprain of ligaments of thoracic spine, initial encounter (principal); S23.41XA Sprain of ribs, initial encounter; S20.211A Contusion of right front wall of thorax, initial encounter; W19.XXXA Unspecified fall, initial encounter; Y93.01 Activity, walking, marching and hiking
CPT/HCPCS: 71101; 72128; 96372; 99284; J1885

== ENCOUNTER → 2024-12-08 | Outpatient (CLI) | payer BC, SELFPAY | END | disposition home or self-care (01) | LOC: SWHD 14:06 | PROVIDERS: PCP Internal Medicine; Referring Provider Internal Medicine; Visit Provider Surgery | DX: L02.214 Cutaneous abscess of groin (principal); S31.103A Unspecified open wound of abdominal wall, right lower quadrant without penetration into peritoneal cavity, initial encounter; X58.XXXA Exposure to other specified factors, initial encounter; Z79.4 Long term (current) use of insulin; E11.40 Type 2 diabetes mellitus with diabetic neuropathy, unspecified; J45.909 Unspecified asthma, uncomplicated; E78.5 Hyperlipidemia, unspecified; K21.9 Gastro-esophageal reflux disease without esophagitis; I42.9 Cardiomyopathy, unspecified; I50.20 Unspecified systolic (congestive) heart failure | CPT/HCPCS: 99213; A9270; G0463 ==

== ENCOUNTER → 2024-12-25 | Outpatient (CLI) | payer BC, SELFPAY ==
[2024-12-25 08:36] LABS: Basophils # (Auto) 0.1 Thou/mm3 (0.0-0.2); Basophils % (Auto) 1 % (0-2.5); Eosinophils # (Auto) 0.1 Thou/mm3 (0.0-0.5); Eosinophils % (Auto) 1 % (0-10); Hematocrit 31.9 % (36.0-46.0); Hemoglobin 10.5 g/dL (12.0-16.0); Immature Granulocytes % (Auto) 0 % (0-0); Immature Granulocytes Auto 0.03 Thou/mm3 (0.00-0.00); Lymphocytes # (Auto) 2.6 Thou/mm3 (1.0-4.8); Lymphocytes % (Auto) 29 % (10-50); Mean Corpuscular HGB Conc 32.9 g/dl (31.0-37.0); Mean Corpuscular Hemoglobin 28.2 pg (25.0-35.0); Mean Corpuscular Volume 86 fL (80-100); Monocytes # (Auto) 0.6 Thou/mm3 (0.0-0.8); Monocytes % (Auto) 7 % (0-12); Neutrophils # (Auto) 5.5 Thou/mm3 (1.8-7.7); Neutrophils % (Auto) 62 % (37-80); Nucleated Red Blood Cell % 0 /100 WBC (0); Platelet Count 266 Thou/mm3 (140-440); RDW Standard Deviation 41.2 fL (36.4-46.3); Red Blood Count 3.72 Miln/mm3 (4.00-5.20); White Blood Count 8.9 Thou/mm3 (3.6-11.0)
[2024-12-25 08:49] LABS: Glucose Estimated Average 157 mg/dL (80-131); Hemoglobin A1C 7.1 % Hgb (4.8-6.0)
[2024-12-25 09:03] LABS: Vitamin D 25 Hydroxy Total 40.8 ng/mL (7.3-40.2)
[2024-12-25 09:09] LABS: Alanine Aminotransferase < 7 U/L (10-49); Albumin, Serum 4.4 gm/dL (3.5-5.0); Albumin/Globulin Ratio 1.6 (1.2-2.2); Alkaline Phosphatase 92 U/L (46-116); Anion Gap 9 (7-16); Aspartate Amino Transferase 14 U/L (0-34); BUN/Creatinine Ratio 29 Ratio (12-20); Bilirubin,Total 0.3 mg/dL (0.3-1.2); Blood Urea Nitrogen 32 mg/dL (9-23); Calcium 9.1 mg/dL (8.3-10.6); Calcium (Corrected) 9.1 mg/dL (8.5-10.1); Carbon Dioxide 24.9 mMol/L (20.0-31.0); Cardiac Risk Estimate 2.3 RATIO (3.7-5.6); Chloride 106 mMol/L (98-107); Cholesterol 127 mg/dL (132-200); Creatinine (Component) 1.1 mg/dL (0.6-1.3); Globulin 2.8 gm/dL (2.3-3.5); Glucose 180 mg/dL (74-106); HDL Cholesterol 55 mg/dL (40-60); LDL Cholesterol,Calculated 61 mg/dL (0-130); Osmolality,Calculated 291 (275-295); Potassium 4.8 mMol/L (3.4-5.1); Sodium 140 mMol/L (136-145); Total Protein 7.2 gm/dL (5.7-8.2); Triglycerides 57 mg/dL (30-150); eGFR 59 See Note
[2024-12-25 09:20] LABS: Creatinine MALB Rnd Ur 95 mg/dL (30-125); Microalbumin Creat Ratio 41 mg/gCrea (<30); Microalbumin, Random Urine 39 mg/L (0-300)
== END | disposition home or self-care (01) ==
LOC: COPL 07:02
PROVIDERS: PCP Internal Medicine; Referring Provider Nurse Practitioner Family; Visit Provider Nurse Practitioner Family
DX: E11.65 Type 2 diabetes mellitus with hyperglycemia (principal); E55.9 Vitamin D deficiency, unspecified
CPT/HCPCS: 36415; 80053; 80061; 82043; 82306; 82570; 83036; 85025

== ENCOUNTER → 2025-03-26 | Outpatient (CLI) | payer BC, SELFPAY ==
--- NOTE | 2025-03-26 11:27 | XR_ITS ---
Examination: Knee, left , 3 views Technique: Knee AP, lateral, oblique 3 views Date and time of exam: March 26, 2025 1138 hrs. Indications: Knee pain 12 years. Findings: Severe osteopenia Mild to moderate tricompartment osteoarthritis, most severe medial joint space No fracture Impression: Mild to moderate tricompartment osteoarthritis
== END | disposition home or self-care (01) ==
LOC: SDIM 11:21
PROVIDERS: PCP Internal Medicine; Referring Provider Internal Medicine; Visit Provider Internal Medicine
DX: M17.12 Unilateral primary osteoarthritis, left knee (principal)
CPT/HCPCS: 73562

== ENCOUNTER → 2025-04-09 | Outpatient (CLI) | payer BC, SELFPAY ==
[2025-04-09 08:12] LABS: Collection Type, Urine Clean Catch; RBC,Urine 0 /hpf (0-3)
[2025-04-09 08:34] LABS: Basophils # (Auto) 0.1 Thou/mm3 (0.0-0.2); Basophils % (Auto) 1 % (0-2.5); Eosinophils # (Auto) 0.2 Thou/mm3 (0.0-0.5); Eosinophils % (Auto) 2 % (0-10); Hematocrit 32.7 % (36.0-46.0); Hemoglobin 10.6 g/dL (12.0-16.0); Immature Granulocytes Auto 0.08 Thou/mm3 (0.00-0.00); Lymphocytes # (Auto) 2.8 Thou/mm3 (1.0-4.8); Lymphocytes % (Auto) 28 % (10-50); Mean Corpuscular HGB Conc 32.4 g/dl (31.0-37.0); Mean Corpuscular Hemoglobin 28.4 pg (25.0-35.0); Mean Corpuscular Volume 88 fL (80-100); Monocytes # (Auto) 0.7 Thou/mm3 (0.0-0.8); Monocytes % (Auto) 7 % (0-12); Neutrophils # (Auto) 6.2 Thou/mm3 (1.8-7.7); Neutrophils % (Auto) 62 % (37-80); Nucleated Red Blood Cell # 0.00 Thou/mm3 (0.00-0.00); Nucleated Red Blood Cell % 0 /100 WBC (0); Platelet Count 243 Thou/mm3 (140-440); RDW Standard Deviation 40.9 fL (36.4-46.3); Red Blood Count 3.73 Miln/mm3 (4.00-5.20); White Blood Count 9.9 Thou/mm3 (3.6-11.0)
[2025-04-09 08:41] LABS: Glucose Estimated Average 157 mg/dL (80-131); Hemoglobin A1C 7.1 % Hgb (4.8-6.0)
[2025-04-09 08:50] LABS: Vitamin B12 436 pg/mL (211-911); Vitamin D 25 Hydroxy Total 30.6 ng/mL (7.3-40.2)
[2025-04-09 08:53] LABS: Alanine Aminotransferase 11 U/L (10-49); Albumin, Serum 3.8 gm/dL (3.5-5.0); Albumin/Globulin Ratio 1.4 (1.2-2.2); Alkaline Phosphatase 97 U/L (46-116); Anion Gap 9 (7-16); Aspartate Amino Transferase 13 U/L (0-34); BUN/Creatinine Ratio 27 Ratio (12-20); Bilirubin,Total 0.4 mg/dL (0.3-1.2); Blood Urea Nitrogen 24 mg/dL (9-23); Calcium 9.3 mg/dL (8.3-10.6); Calcium (Corrected) 9.5 mg/dL (8.5-10.1); Carbon Dioxide 26.1 mMol/L (20.0-31.0); Cardiac Risk Estimate 2.8 RATIO (3.7-5.6); Chloride 109 mMol/L (98-107); Cholesterol 142 mg/dL (132-200); Creatinine (Component) 0.9 mg/dL (0.6-1.3); Globulin 2.7 gm/dL (2.3-3.5); Glucose 146 mg/dL (74-106); HDL Cholesterol 50 mg/dL (40-60); LDL Cholesterol,Calculated 70 mg/dL (0-130); Osmolality,Calculated 293 (275-295); Potassium 4.9 mMol/L (3.4-5.1); Sodium 144 mMol/L (136-145); Thyroid Stimulating Hormone 0.82 uIU/mL (0.55-4.78); Total Protein 6.5 gm/dL (5.7-8.2); Triglycerides 109 mg/dL (30-150); Uric Acid 5.3 mg/dL (3.1-7.8); eGFR > 60 See Note
[2025-04-09 08:55] LABS: Bacteria,Urine 1+; Bilirubin,Urine Negative (Negative); Blood,Urine Negative (Negative); Clarity,Urine Turbid (Clear/Hazy); Color,Urine Lt-Yellow (Lt Yel-Yel); Glucose, Urine Negative (Negative); Hyaline Casts,Urine < 1 /hpf (0-1); Ketones,Urine Negative (Negative); Leukocyte Esterase,Urine Positive (Negative); Nitrite,Urine Positive (Negative); PH,Urine 5.5 (5.0-7.0); Protein,Urine Negative (Neg - Trace); Specific Gravity,Urine 1.018 (1.001-1.035); Squamous Epithelial Cell,Urine 2 /hpf (0-5); Urobilinogen,Urine Negative mg/dL (0.0-1.0); WBC,Urine 39 /hpf (0-5)
[2025-04-09 09:09] LABS: Creatinine MALB Rnd Ur 97 mg/dL (30-125); Microalbumin Creat Ratio 54 mg/gCrea (<30); Microalbumin, Random Urine 52 mg/L (0-300)
== END | disposition home or self-care (01) ==
LOC: COPL 07:26
PROVIDERS: PCP Internal Medicine; Referring Provider Internal Medicine; Visit Provider Internal Medicine
DX: E11.9 Type 2 diabetes mellitus without complications (principal); I10 Essential (primary) hypertension; E78.5 Hyperlipidemia, unspecified; N17.9 Acute kidney failure, unspecified
CPT/HCPCS: 36415; 80053; 80061; 81001; 82043; 82306; 82570; 82607; 83036; 84443; 84550; 85025